=== PATIENT | male | born 1980 | race Native Hawaiian/Other Pacific Islander ===

== ENCOUNTER 2018-10-12 08:31 | Inpatient (IN) | payer OTHER ==
[2018-10-10 11:18] VITALS: BMI 31.6
[2018-10-12] MEDS ORDERED: ceFAZolin 1 gm in NS 2 GM/200 ML BAG IVPB ONE (14:05)
[2018-10-12] MEDS ORDERED: Midazolam 2 MG/2 ML VIAL ONE ×3 (14:09→16:02)
[2018-10-12] MEDS ORDERED: Propofol 10 mg/ml Inj (20 ML) ONE (14:11)
[2018-10-12] MEDS ORDERED: Oxycodone/Acetaminophen 5/325 mg Tab PO PRN ×2 (14:58)
[2018-10-12] MEDS ORDERED: Phenylephrine 10 mg/ml Inj ONE (15:01)
[2018-10-12] MEDS ORDERED: ePHEDrine 50 mg/ml Inj ONE (15:05)
[2018-10-12] MEDS ORDERED: Neostigmine 1:1000 (1 mg/ml) Inj ONE (15:21)
[2018-10-12] MEDS ORDERED: DiphenhydrAMINE 50 mg/ml Inj IVP PRN (16:18)
--- NOTE | 2018-10-12 16:21 | CP.PCM.CON ---
<CristoCesias M - Last Filed: 10/12/18 20:06> History of Present Illness - History of Present Illness History of Present Illness: ICU Consult Note for Dr. Uri Granda Consult for allergic reaction/anaphylaxis 38 years old male with PMHx with Asthma, & R achilles tendon rupture presented for SDS for a right Achilles Tendon repair. Following pre-op administration of Ancef and 10-minutes after incision, patient became hypotensive which was refractory to fluid and Neosynephrine, ephedrine, small doses of epi. Decision was made to stop the operation. Anesthesia performed a leak test which was noted no air passing past the ET tube while intubated. Patient was kept intubated and was transferred to the ICU. Unable to obtain ROS as patient is intubated. PMHx: Asthma Allergies: NKDA PSHx: Unobtainable due to patient's condition. Social Hx: Unobtainable due to patient's condition. Family Hx: Unobtainable due to patient's condition. PMD: Unobtainable Review of Systems - Review of Systems Systems not reviewed;Unavailable: Intubated Past Patient History - Past Medical History & Family History Past Medical History?: Yes - Past Social History Smoking Status: Never Smoked - CARDIAC Hx Cardiac Disorders: No - PULMONARY Hx Respiratory Disorders: No - NEUROLOGICAL Hx Neurological Disorder: No - HEENT Hx HEENT Problems: No - RENAL Hx Chronic Kidney Disease: No - ENDOCRINE/METABOLIC Hx Endocrine Disorders: No - HEMATOLOGICAL/ONCOLOGICAL Hx Blood Disorders: No - INTEGUMENTARY Hx Dermatological Problems: No - MUSCULOSKELETAL/RHEUMATOLOGICAL Hx Musculoskeletal Disorders: Yes Other/Comment: achilles tendon tear - GASTROINTESTINAL Hx Gastrointestinal Disorders: Yes Hx Gall Bladder Disease: Yes - GENITOURINARY/GYNECOLOGICAL Hx Genitourinary Disorders: No - PSYCHIATRIC Hx Psychophysiologic Disorder: No - SURGICAL HISTORY Hx Surgeries: Yes Hx Cholecystectomy: Yes - ANESTHESIA Hx Anesthesia: Yes Hx Anesthesia Reactions: No Hx Malignant Hyperthermia: No Has any member of the family had a problem w/ anesthesia?: No Meds Allergies/Adverse Reactions: Allergies Allergy/AdvReac Type Severity Reaction Status Date / Time cefazolin [From Ancef] Allergy ANAPHYLAXIS Verified 10/12/18 18:52 - Medications Medications: Current Medications Propofol (Diprivan) 1,000 mg in 100 mls @ 2.585 mls/hr IV .Q24H PRN; Protocol PRN Reason: TITRATE PER MD ORDER Methylprednisolone (Solu-Medrol) 40 mg IVP Q6H [facility] Oxycodone/Acetaminophen (Percocet 5/325 Mg Tab) 1 tab PO Q4H PRN PRN Reason: Pain, moderate (4-7) Stop: 10/15/18 14:59 Oxycodone/Acetaminophen (Percocet 5/325 Mg Tab) 2 tab PO Q4H PRN PRN Reason: Pain, severe (8-10) Stop: 10/15/18 14:59 Physical Exam - Constitutional Appears: Agitated - Head Exam Head Exam: NORMAL INSPECTION, NORMOCEPHALIC - Eye Exam Eye Exam: Normal appearance - ENT Exam ENT Exam: Mucous Membranes Moist Additional comments: Intubated, Lucie-orbital swelling, Lip edema - Respiratory Exam Respiratory Exam: Clear to Auscultation Bilateral Additional comments: intubated - Cardiovascular Exam Cardiovascular Exam: +S1, +S2. absent: Systolic Murmur - GI/Abdominal Exam GI & Abdominal Exam: Normal Bowel Sounds, Soft. absent: Distended - Extremities Exam Extremities exam: Negative for: calf tenderness Additional comments: R leg in cast - Neurological Exam Additional comments: Intubated - Skin Additional comments: Multiple tattoos around body Results - Vital Signs Recent Vital Signs: Last Vital Signs Temp 97.6 F 10/12/18 09:09 Pulse 72 10/12/18 09:09 Resp 18 10/12/18 09:09 BP 133/88 10/12/18 09:09 Pulse Ox 98 10/12/18 09:09 - Labs Result Diagrams: 10/12/18 18:26 10/12/18 18:26 Assessment & Plan - Assessment and Plan (Free Text) Assessment: 38 year old male with PMHx with Asthma who presented to the hospital for SDS for Achilles Tendon repair. Following administration of Ancef and incision in OR, patient became hypotensive secondary to anaphylactic reaction. Currently intubated, receiving methylprednisone & benadryl. On propofol & versed drip Plan: Neuro - Intubated and sedated - Propofol drip - no acute issues Cardiac - Tachycardic, Hypotensive 2/2 anaphylactic shock - NS bolus x7 - EKG to assess for QTc Pulm - Intubated on PRVC 15/450/40/5 - CXR 10/12: Minor bibasilar atelectasis - start Solumedrol 40mg q6h - Benadryl 25mg PRN - CXR in AM - f/u ABG GI - NPO, intubated - 1 episode of vomiting - will monitor Heme - H/H: 12s/39s - continue to monitor Renal - BUN/Cr 13s/0.9 - Condom catheter - monitor I & O - replenish electrolytes ID - Afebrile, WBC 14.9 - hx of foot ulcer/wound on R foot, unable to visualize due to cast - will start moxifloxacin empirically - f/u CBC PPx - DVT ppx: Heparin SC, scds on L LE - GI ppx: pepsid <Jessica Granda M - Last Filed: 10/13/18 09:13> Meds - Medications Medications: Current Medications Albuterol/Ipratropium (Duoneb 3 Mg/0.5 Mg (3 Ml) Ud) 3 ml INH RQ4 [facility] Last Admin: 10/13/18 03:52 Dose: 3 ml Heparin Sodium (Porcine) (Heparin) 5,000 units SC Q8 [facility] Last Admin: 10/13/18 06:03 Dose: 5,000 units Moxifloxacin HCl (Avelox Iv 400mg/250ml Ns) 400 mg in 250 mls @ 167 mls/hr IVPB Q24H [facility]ELA; Protocol Last Admin: 10/12/18 20:45 Dose: 167 mls/hr Calcium Gluconate 2,000 mg/ (Sodium Chloride) 270 mls @ 125 mls/hr IVPB ONCE ONE Stop: 10/13/18 11:09 Potassium Chloride (Potassium Chloride 20 Meq/100 Ml) 20 meq in 100 mls @ 50 mls/hr IVPB Q2H [facility] Stop: 10/13/18 13:14 Sodium Chloride (Sodium Chloride 0.9%) 1,000 mls @ 75 mls/hr IV .[id number] [facility] Methylprednisolone (Solu-Medrol) 40 mg IVP Q6H [facility] Last Admin: 10/13/18 04:26 Dose: 40 mg Pantoprazole Sodium (Protonix Ec Tab) 40 mg PO DAILY [facility] Results - Vital Signs Recent Vital Signs: Last Vital Signs Temp 97.4 F L 10/13/18 04:00 Pulse 108 H 10/13/18 08:01 Resp 21 10/13/18 08:01 BP 126/82 10/13/18 08:01 Pulse Ox 98 10/13/18 08:01 - Labs Result Diagrams: 10/13/18 07:28 10/13/18 06:25 Labs: Laboratory Results - last 24 hr 10/12/18 10/12/18 10/12/18 18:26 18:26 23:39 WBC 14.9 H RBC 5.46 Hgb 12.3 Hct 39.7 MCV 72.7 L MCH 21.9 L MCHC 30.1 L RDW 13.7 Plt Count 228 MPV 8.9 Neut % (Auto) 86.2 H Lymph % (Auto) 8.6 L [place] % (Auto) 4.4 Eos % (Auto) 0.3 Baso % (Auto) 0.5 Neut # (Auto) 12.9 H Lymph # (Auto) 1.3 [place] # (Auto) 0.7 Eos # (Auto) 0.0 Baso # (Auto) 0.1 Neutrophils % (Manual) 79 H Band Neutrophils % 8 H Lymphocytes % (Manual) 10 L Monocytes % (Manual) 3 Platelet Estimate Normal Hypochromasia (manual) Slight Poikilocytosis (manual Slight Anisocytosis (manual) Slight Puncture Site pCO2 pO2 HCO3 ABG pH ABG Total CO2 ABG O2 Saturation ABG Base Excess ABG Hemoglobin ABG Carboxyhemoglobin POC ABG HHb (Measured) ABG Methemoglobin Chicho Test A-a O2 Difference Respiratory Index Hgb O2 Saturation Vent Mode Mechanical Rate FiO2 Tidal Volume PEEP Sodium 139 Potassium 3.9 Chloride 108 H Carbon Dioxide 23 Anion Gap 11 BUN 13 Creatinine 0.9 Est GFR ( Amer) > 60 Est GFR (Non-Af Amer) > 60 POC Glucose (mg/dL) 154 H Random Glucose 102 Calcium 7.8 L Phosphorus 3.3 Magnesium 1.5 L Total Bilirubin 0.9 AST 45 ALT 80 H Alkaline Phosphatase 49 Total Creatine Kinase 118 CK-MB (Mass) 0.54 Troponin I 0.0190 Total Protein 5.1 L Albumin 3.0 L Globulin 2.1 L Albumin/Globulin Ratio 1.4 10/13/18 10/13/18 10/13/18 05:24 05:48 06:25 WBC RBC Hgb Hct MCV MCH MCHC RDW Plt Count MPV Neut % (Auto) Lymph % (Auto) [place] % (Auto) Eos % (Auto) Baso % (Auto) Neut # (Auto) Lymph # (Auto) [place] # (Auto) Eos # (Auto) Baso # (Auto) Neutrophils % (Manual) Band Neutrophils % Lymphocytes % (Manual) Monocytes % (Manual) Platelet Estimate Hypochromasia (manual) Poikilocytosis (manual Anisocytosis (manual) Puncture Site L brac pCO2 37 pO2 107 H HCO3 21.3 ABG pH 7.35 ABG Total CO2 21.5 L ABG O2 Saturation 99.4 H ABG Base Excess -4.7 L ABG Hemoglobin 11.6 L ABG Carboxyhemoglobin 2.3 H POC ABG HHb (Measured) 0.6 ABG Methemoglobin 0.7 Chicho Test Na A-a O2 Difference 132.0 Respiratory Index 1.2 Hgb O2 Saturation 96.4 Vent Mode Prvc Mechanical Rate 16 FiO2 40.0 Tidal Volume 450 PEEP 5 Sodium 139 Potassium 3.2 L Chloride 117 H Carbon Dioxide 15 L Anion Gap 10 BUN 9 Creatinine 0.6 L Est GFR ( Amer) > 60 Est GFR (Non-Af Amer) > 60 POC Glucose (mg/dL) 126 H Random Glucose 114 H Calcium 5.8 L* D Phosphorus 2.0 L Magnesium 1.7 Total Bilirubin 0.6 AST 33 ALT 65 Alkaline Phosphatase 35 L D Total Creatine Kinase CK-MB (Mass) Troponin I Total Protein 4.2 L Albumin 2.3 L D Globulin 1.9 L Albumin/Globulin Ratio 1.2 10/13/18 07:28 WBC 16.1 H RBC 5.19 Hgb 11.5 L Hct 37.8 MCV 72.9 L MCH 22.1 L MCHC 30.3 L RDW 13.7 Plt Count 225 MPV 8.8 Neut % (Auto) 93.6 H Lymph % (Auto) 4.9 L [place] % (Auto) 1.4 Eos % (Auto) 0.0 Baso % (Auto) 0.1 Neut # (Auto) 15.1 H Lymph # (Auto) 0.8 L [place] # (Auto) 0.2 Eos # (Auto) 0.0 Baso # (Auto) 0.0 Neutrophils % (Manual) Band Neutrophils % Lymphocytes % (Manual) Monocytes % (Manual) Platelet Estimate Hypochromasia (manual) Poikilocytosis (manual Anisocytosis (manual) Puncture Site pCO2 pO2 HCO3 ABG pH ABG Total CO2 ABG O2 Saturation ABG Base Excess ABG Hemoglobin ABG Carboxyhemoglobin POC ABG HHb (Measured) ABG Methemoglobin Chicho Test A-a O2 Difference Respiratory Index Hgb O2 Saturation Vent Mode Mechanical Rate FiO2 Tidal Volume PEEP Sodium Potassium Chloride Carbon Dioxide Anion Gap BUN Creatinine Est GFR ( Amer) Est GFR (Non-Af Amer) POC Glucose (mg/dL) Random Glucose Calcium Phosphorus Magnesium Total Bilirubin AST ALT Alkaline Phosphatase Total Creatine Kinase CK-MB (Mass) Troponin I Total Protein Albumin Globulin Albumin/Globulin Ratio Assessment & Plan - Assessment and Plan (Free Text) Plan: Above patient seen and examined at bedside. -Patient developed anaphylactic shock 2nd ancef -blanching skin lesions -will keep intubated -IV solumedrol, racemic epci, duonebs -IVF NS 7 liters -Patient's leak test neg - no leakage -cpap and extubate in AM -cc time 35 minutes - Date & Time Date: 10/12/18 Time: 21:00
--- NOTE | 2018-10-12 16:45 | RAD ---
Date of service: 10/12/2018 HISTORY: allergic reaction, intubated COMPARISON: No prior. FINDINGS: In situ ETT, tip of which lies approximately 4.1 cm above brandon. LUNGS: Low lung volumes with minor crowded bronchovascular markings and bibasilar atelectasis PLEURA: No significant pleural effusion identified, no pneumothorax apparent. CARDIOVASCULAR: No aortic atherosclerotic calcification present. Normal cardiac size. No pulmonary vascular congestion. OSSEOUS STRUCTURES: No significant abnormalities. VISUALIZED UPPER ABDOMEN: Normal. OTHER FINDINGS: None. IMPRESSION: In situ ETT in good position. Minor bibasilar atelectasis
--- NOTE | 2018-10-12 16:50 | CP.PCM.PN ---
Subjective - Date & Time of Evaluation Date of Evaluation: 10/12/18 Time of Evaluation: 16:43 - Subjective Subjective: patient intubated struggling and agitated trying to remove ET tube propofol increased during my evaluation non verbal Objective - Vital Signs/Intake and Output Vital Signs (last 24 hours): Temp Pulse Resp BP Pulse Ox 97.6 F 72 18 133/88 98 10/12/18 09:09 10/12/18 09:09 10/12/18 09:09 10/12/18 09:09 10/12/18 09:09 Intake and Output: 10/12/18 10/12/18 06:59 18:59 Intake Total 1700 Balance 1700 - Medications Medications: Current Medications Diphenhydramine HCl (Benadryl) 25 mg IVP PRN PRN PRN Reason: Allergy symptoms Propofol (Diprivan) 1,000 mg in 100 mls @ 2.585 mls/hr IV .Q24H PRN; Protocol PRN Reason: TITRATE PER MD ORDER Sodium Chloride (Sodium Chloride 0.9%) 1,000 mls @ 1,000 mls/hr IV .Q1H [facility] Stop: 10/12/18 23:29 Methylprednisolone (Solu-Medrol) 40 mg IVP Q6H [facility] Oxycodone/Acetaminophen (Percocet 5/325 Mg Tab) 2 tab PO Q4H PRN PRN Reason: Pain, severe (8-10) Stop: 10/15/18 14:59 - Constitutional Appears: Agitated - Head Exam Head Exam: ATRAUMATIC, NORMAL INSPECTION - Eye Exam Additional comments: eyes swollen - ENT Exam Additional comments: lips swollen - Respiratory Exam Respiratory Exam: absent: Clear to Ausculation Bilateral, Rales, Rhonchi, Wheezes Additional comments: coarse on vent - Cardiovascular Exam Cardiovascular Exam: Tachycardia, +S1, +S2 - GI/Abdominal Exam GI & Abdominal Exam: Soft, Normal Bowel Sounds. absent: Tenderness, Organomegaly - Extremities Exam Additional comments: right achiles in cast - Neurological Exam Neurological Exam: absent: Alert, Awake, Oriented x3 Additional comments: spont moving all ext. Assessment and Plan - Assessment and Plan (Free Text) Assessment: 38 yo male apparently no PMH per anesthesia- no family at bedside, patient non verbal - admitted to ICU from same day surgery. During OR procedure to repair right achilles tendon - procedure was started patient was turned over, he recieved anesthesia and ancef in preperation, first cut was made and in 10 min patient started dropping blood pressure and was red, also had swollen eyes, lips, swollen oropharnax, no passage of air past endo tracheal tube and thus surgery was stopped and patient transferred to icu. 1. Anaphalatic shock- with redness, swelling of face, oropharynx, lips, eyes, whole body red. started on steroids, benadryl 2. Continue monitoring in ICU - keep intubated on sedation for airway protection 3. Right achilles rupture- hold OR 4. DVT proph. continue treatment and monitoring in ICU Will help in treatment and plan when patient ready for med/surg floor.
[2018-10-12] MEDS: MethylPREDNISolone 40 mg Vial IVP SCH ×2 (16:54→22:09)
[2018-10-12] MEDS: Sodium Chloride 0.9% 1,000 ML IV SCH ×5 (16:56→23:50)
--- NOTE | 2018-10-12 17:03 | CP.PCM.CON ---
History of Present Illness - History of Present Illness History of Present Illness: During surgery patient was noted to have profound hypotension, with the first pressure noted at 1455. Neosynephrine, ephedrine, small doses of epi and vasopressin given and pressure responded very slightly over the course of [address] Kamar Gerber informed about the situation and decision was made to close the initial preliminary incision and abort the case. Blood pressure checked on other arm when patient was noted to have patches of red and hives on arms and back. After flipping the patient prone, patient was noted to have swollen face, periorbit, ears and lips. Leak test performed and I could not hear any air movement and tidal volumes were unchanged. The decision was made to transfer the patient to ICU for observation for allergic reaction/possible anaphylaxis. Sign out was performed to Dr. Granda with Dr. Kamar Gerber at bedside. Past Patient History - Past Medical History & Family History Past Medical History?: Yes - Past Social History Smoking Status: Never Smoked - CARDIAC Hx Cardiac Disorders: No - PULMONARY Hx Respiratory Disorders: No - NEUROLOGICAL Hx Neurological Disorder: No - HEENT Hx HEENT Problems: No - RENAL Hx Chronic Kidney Disease: No - ENDOCRINE/METABOLIC Hx Endocrine Disorders: No - HEMATOLOGICAL/ONCOLOGICAL Hx Blood Disorders: No - INTEGUMENTARY Hx Dermatological Problems: No - MUSCULOSKELETAL/RHEUMATOLOGICAL Hx Musculoskeletal Disorders: Yes Other/Comment: achilles tendon tear - GASTROINTESTINAL Hx Gastrointestinal Disorders: Yes Hx Gall Bladder Disease: Yes - GENITOURINARY/GYNECOLOGICAL Hx Genitourinary Disorders: No - PSYCHIATRIC Hx Psychophysiologic Disorder: No - SURGICAL HISTORY Hx Surgeries: Yes Hx Cholecystectomy: Yes - ANESTHESIA Hx Anesthesia: Yes Hx Anesthesia Reactions: No Hx Malignant Hyperthermia: No Has any member of the family had a problem w/ anesthesia?: No Meds Allergies/Adverse Reactions: Allergies Allergy/AdvReac Type Severity Reaction Status Date / Time No Known Allergies Allergy Verified 10/10/18 11:18 - Medications Medications: Current Medications Diphenhydramine HCl (Benadryl) 25 mg IVP PRN PRN PRN Reason: Allergy symptoms Propofol (Diprivan) 1,000 mg in 100 mls @ 2.585 mls/hr IV .Q24H PRN; Protocol PRN Reason: TITRATE PER MD ORDER Sodium Chloride (Sodium Chloride 0.9%) 1,000 mls @ 1,000 mls/hr IV .Q1H [facility] Stop: 10/12/18 23:29 Methylprednisolone (Solu-Medrol) 40 mg IVP Q6H [facility] Oxycodone/Acetaminophen (Percocet 5/325 Mg Tab) 2 tab PO Q4H PRN PRN Reason: Pain, severe (8-10) Stop: 10/15/18 14:59 Results - Vital Signs Recent Vital Signs: Last Vital Signs Temp 97.6 F 10/12/18 09:09 Pulse 72 10/12/18 09:09 Resp 18 10/12/18 09:09 BP 133/88 10/12/18 09:09 Pulse Ox 98 10/12/18 09:09
[2018-10-12] MEDS: Propofol 10 mg/ml 1,000 MG/100 ML VIAL IV PRN ×3 (17:40→23:50)
[2018-10-12] MEDS ORDERED: Racepinephrine 2.25% Inhal Soln 0.5 ML UD INH ONE (18:18)
[2018-10-12] MEDS ORDERED: Albuterol 0.083% Inhal Sol (2.5 mg/3 mL) UD ONE (18:38)
[2018-10-12 18:50] LABS: ALB/GLOB RATIO 1.4 (1.0-2.1); ALT/SGPT 80 U/L (21-72); AST/SGOT 45 U/L (17-59); BLOOD UREA NITROGEN 13 mg/dL (9-20); CALCIUM 7.8 mg/dl (8.6-10.4); GFR NON-AFRICAN AMERICAN > 60
[2018-10-12 19:01] LABS: CK-MB 0.54 ng/mL (0.0-3.38)
[2018-10-12 19:41] LABS: BASO # 0.1 K/uL (0.0-0.2); BASO % 0.5 % (0.0-2.0); EOS % 0.3 % (0.0-4.0); LYMPH # 1.3 K/uL (1.0-4.3); LYMPH % 8.6 % (20.0-40.0); MEAN CELL VOLUME 72.7 fL (80.0-94.0); MEAN CORPUSCULAR HEMOGLOBIN 21.9 pg (27.0-31.0); MEAN CORPUSCULAR HGB CONC 30.1 g/dL (33.0-37.0); MEAN PLATELET VOLUME 8.9 fL (7.2-11.7); MONO # 0.7 K/uL (0.0-0.8); MONO % 4.4 % (0.0-10.0); NEUT # 12.9 K/uL (1.8-7.0); NEUT % 86.2 % (50.0-75.0); NRBC % 0.1 % (0.0-2.0); RBC 5.46 Mil/uL (4.40-5.90); RED CELL DISTRIBUTION WIDTH 13.7 % (11.5-14.5); WHITE BLOOD COUNT 14.9 K/uL (4.8-10.8)
[2018-10-12 19:44] LABS: HEMOGLOBIN 12.3 g/dL (12.0-18.0)
[2018-10-12 19:45] LABS: PLATELET COUNT 228 K/uL (130-400)
[2018-10-12] MEDS ORDERED: Midazolam 50 mg/10 ml 100 MG in Dextrose 5% In Water 80 ML IV SCH (19:45)
[2018-10-12] MEDS ORDERED: Albuterol-Ipratrop 3 mg / 0.5 (3 ml) UD INH SCH (20:00)
[2018-10-12] MEDS: Magnesium Sulfate 1 gm in D5W 1 GM/100 ML BAG IVPB SCH ×2 (20:14→20:47)
[2018-10-12] MEDS ORDERED: Moxifloxacin IV 400mg/250ml NS 400 MG/250 ML BAG IVPB SCH (20:15)
[2018-10-12 21:11] LABS: BANDS 8 % (0-2); LYMPHOCYTE 10 % (20-40); MONOCYTE 3 % (0-10); NEUTROPHIL 79 % (50-75); TOTAL CELLS COUNTED 100
[2018-10-12 21:12] LABS: ANISOCYTOSIS SLIGHT; HYPOCHROMIC SLIGHT; PLATELET ESTIMATE NORMAL (NORMAL); POIKILOCYTOSIS SLIGHT
--- NOTE | 2018-10-12 21:32 | PCM.SURG1 ---
Surgeon's Initial Post Op Note - Surgeon's Notes Surgeon: Marlin Wren MD Bond Broker: Brandon De Santiago PA-C Type of Anesthesia: General Endo Pre-Operative Diagnosis: Right ankle [place]'s tear Operative Findings: Right Ankle Michael's tear Post-Operative Diagnosis: Right [place]'s Tendon Tear Operation Performed: Right Ankle/Foot: #1 Aborted Open Imchael's Primary Repai r. #2 Closed Treatment of Michael's Tear. #3 Placement in Short Leg Equinus Cast Specimen/Specimens Removed: specimen= none. implants= none. tourniquet time= 4 min at 300mmHg. Complications= Hypotensive Episode at the Beginning of the Surgery immediately after incision, Surgery Aborted (only skin incision made), placed in short leg cast in Equinus position as non-operative/ closed tx for the Michael's tear Estimated Blood Loss: EBL {In ML}: 0 Blood Products Given: N/A Drains Used: No Drains Post-Op Condition: Other Date of Surgery/Procedure: 10/12/18 Time of Surgery/Procedure: 15:00
--- NOTE | 2018-10-12 22:36 | CP.PCM.PN ---
Subjective - Date & Time of Evaluation Date of Evaluation: 10/12/18 Time of Evaluation: 17:00 - Subjective Subjective: Patient is a 38-year-old male with no significant past medical history admitted through same-day surgery today for planned outpatient right ankle/foot primary Achilles tendon repair. He was playing recreational basketball on 09/12/18 when he felt a pop localized to his right foot/ankle Achilles tendon with immediate weakness and pain. He was unable to return to playing basketball. Clinically, as well as through MRI, Achilles tear was confirmed. Treatment options were presented to the patient including serial casting versus primary repair. He took his time doing his own research and after multiple discussions with myself in the office and on the phone, he finally committed to primary Achilles repair scheduled for today, 10/12/18. He did not want to pursue non- operative tx/ serial casting. Review of medical records from his primary care physician (preoperative medical clearance/evaluation), my office notes, and the patients own documentation of past medical history including question about allergies shows that there is no known history of medical problems or allergies. There is a history of previous surgery, gallbladder removal in 2013 in [place] without any complications. He was admitted through same day surgery today as planned for outpatient primary Achilles repair. He was brought to the operating room and placed successfully under general anesthesia without any obvious immediate complications. He was then placed into the prone position with appropriate padding and positioning confirmed with the help of nursing and anesthesia staff as well. IV perioperative antibiotics in the form of Ancef was administered at 2:43 PM. We continued to prep and drape. Final time out was done and pt positioning evaluated with help of nursing and anesthesia staff. There was no communication from Anesthesia staff or obvious indication at the time of "Final Time Out" that there was any complication or developing hypotensive episode. Right Lower Extremity was exanguinated and tourniquet was inflated. After skin incision was made, anesthesia staff communicated to me that the pt is experiencing a severe hypotensive episode that was not responding to Painful Stimulus. Surgery was halted. We were not satisfied with the response from pressors and he continued to be hypotensive albeit improved. After discussing the situation with anesthesia staff, decision was made to abort surgery, the skin incision was reapproximated with nitza and sterile dressings were placed. Right ankle/foot was then placed in a short leg cast in equines position as closed treatment for the Achilles tear. He was brought to the supine position and it was obvious that there was facial swelling as well as redness from presumed allergic reaction. Anesthesia staff performed a leak test during which there was no escape of air around the endotracheal tube. It was ascertained that he also had tracheal swelling/edema from the allergic reaction. Decision was made to keep him intubated and he was transferred to ICU room #4. The short leg cast was bivalved as a precaution to accommodate any fluid shifts during his ICU stay and while remaining intubated. I personally signed out to the hospitalist and ICU attending with anesthesiologist Francisco J Jade MD. I personally spoke with patients over the phone on numerous occasions as she was presently in [facility] until 6 PM. She was aware of the situation and was in agreement with our treatment plan. Plan to meet with patients family and hospitalist team at ICU bedside with patient tomorrow a.m. Objective - Vital Signs/Intake and Output Vital Signs (last 24 hours): Temp Pulse Resp BP Pulse Ox 97.2 F L 93 H 17 104/60 98 10/12/18 14:59 10/12/18 19:51 10/12/18 19:51 10/12/18 19:51 10/12/18 19:51 Intake and Output: 10/12/18 10/13/18 18:59 06:59 Intake Total 3846.2 1065.6 Balance 3846.2 1065.6 - Medications Medications: Current Medications Albuterol/Ipratropium (Duoneb 3 Mg/0.5 Mg (3 Ml) Ud) 3 ml INH RQ4 [facility]A Diphenhydramine HCl (Benadryl) 25 mg IVP PRN PRN PRN Reason: Allergy symptoms Last Admin: 10/12/18 16:54 Dose: 25 mg Heparin Sodium (Porcine) (Heparin) 5,000 units SC Q8 CRISTELA Propofol (Diprivan) 1,000 mg in 100 mls @ 2.585 mls/hr IV .Q24H PRN; Protocol PRN Reason: TITRATE PER MD ORDER Last Titration: 10/12/18 20:50 Dose: 40 mcg/kg/min, 20.684 mls/hr Midazolam HCl 100 mg/ Dextrose 100 mls @ 1.72 mls/hr IV .Q24H CRISTELA; Protocol Last Admin: 10/12/18 20:02 Dose: 0.02 mg/kg/hr, 1.72 mls/hr Sodium Chloride (Sodium Chloride 0.9%) 1,000 mls @ 250 mls/hr IV .Q4H CRISTELA Last Admin: 10/12/18 19:30 Dose: 250 mls/hr Moxifloxacin HCl (Avelox Iv 400mg/250ml Ns) 400 mg in 250 mls @ 167 mls/hr IVPB Q24H CRISTELA; Protocol Last Admin: 10/12/18 20:45 Dose: 167 mls/hr Methylprednisolone (Solu-Medrol) 40 mg IVP Q6H CRISTELA Last Admin: 10/12/18 16:54 Dose: 40 mg Oxycodone/Acetaminophen (Percocet 5/325 Mg Tab) 2 tab PO Q4H PRN PRN Reason: Pain, severe (8-10) Stop: 10/15/18 14:59 Pantoprazole Sodium (Protonix Inj) 40 mg IVP DAILY CRISTELA - Labs Labs: 10/12/18 18:26 10/12/18 18:26 Assessment and Plan - Assessment and Plan (Free Text) Assessment: 38 yo Male, w/ R foot/ankle pain and weakness s/p non-contact injury during basketball game on 09/12/18. Dx= R foot/ankle Michael's tendon tear Plan for surgery = primary Achilles repair 10/12/18 as outpt surgery at [facility]. Surgery aborted due to hypotensive episode, most likely allergic reaction/ anaphylaxis. skin wound closed, placed in well padded short leg cast in Equines position- closed treatment of Bradford's tendon tear. Failed leak test with anesthesia in OR prior to planned extubation. Transferred to ICU, remained intubated overnight. Extubated next day AM, 10/13/18. PLAN: R foot/ankle: -placed in bivalved short leg cast in equinus position as closed / non-op tx of Achilles tear -cast care -elevation -NWB RLE -DVT proph Hypotensive episode/ allergic reaction: -still intubated in ICU -respiratory tx per ICU staff -steroid, benadryl tx to decrease swelling Will Follow Plan to meet with family, hospitalist team and ICU team 10/13/18 AM bedside with pt. I personally had many discussions over the phone with the pt's during the course of the day after arriving with pt in ICU. She is in agreement with the tx plan moving foward and all questions were answered. Dr. Pate was present for some of the interactions and helped explain the anesthesia point of view of the events to the pts over the phone as well. Please contact me directly with any updates, concerns, questions at [phone]. Marlin Wren MD Orthopedic Surgery
[2018-10-13] MEDS: Albuterol-Ipratrop 3 mg / 0.5 (3 ml) UD INH SCH ×6 (00:46→19:21)
[2018-10-13] MEDS: Sodium Chloride 0.9% 1,000 ML IV SCH (04:20)
[2018-10-13] MEDS: MethylPREDNISolone 40 mg Vial IVP SCH ×4 (04:26→21:41)
[2018-10-13 05:52] LABS: ARTERIAL BLOOD GAS HCO3 21.3 mmol/L (21-28); ARTERIAL BLOOD GAS HEMOGLOBIN 11.6 g/dL (11.7-17.4); ARTERIAL BLOOD GAS O2 SAT 99.4 % (95-98); ARTERIAL BLOOD GAS PCO2 37 mm/Hg (35-45); ARTERIAL BLOOD GAS PH 7.35 (7.35-7.45); ARTERIAL BLOOD GAS PO2 107 mm/Hg (80-100); ARTERIAL BLOOD GAS TCO2 21.5 mmol/L (22-28)
[2018-10-13] MEDS: Propofol 10 mg/ml 1,000 MG/100 ML VIAL IV PRN (06:09)
[2018-10-13 06:50] LABS: ALB/GLOB RATIO 1.2 (1.0-2.1); ALBUMIN 2.3 g/dL (3.5-5.0); ALT/SGPT 65 U/L (21-72); AST/SGOT 33 U/L (17-59); BLOOD UREA NITROGEN 9 mg/dL (9-20); CALCIUM 5.8 mg/dl (8.6-10.4); GFR NON-AFRICAN AMERICAN > 60
[2018-10-13 08:29] LABS: BASO % 0.1 % (0.0-2.0); LYMPH # 0.8 K/uL (1.0-4.3); LYMPH % 4.9 % (20.0-40.0); MEAN CELL VOLUME 72.9 fL (80.0-94.0); MEAN CORPUSCULAR HEMOGLOBIN 22.1 pg (27.0-31.0); MEAN CORPUSCULAR HGB CONC 30.3 g/dL (33.0-37.0); MEAN PLATELET VOLUME 8.8 fL (7.2-11.7); MONO # 0.2 K/uL (0.0-0.8); MONO % 1.4 % (0.0-10.0); NEUT # 15.1 K/uL (1.8-7.0); NEUT % 93.6 % (50.0-75.0); PLATELET COUNT 225 K/uL (130-400); RBC 5.19 Mil/uL (4.40-5.90); RED CELL DISTRIBUTION WIDTH 13.7 % (11.5-14.5); WHITE BLOOD COUNT 16.1 K/uL (4.8-10.8)
[2018-10-13 08:33] LABS: HEMOGLOBIN 11.5 g/dL (12.0-18.0)
[2018-10-13] MEDS ORDERED: Sodium Chloride 0.9% 1,000 ML IV SCH (08:45)
[2018-10-13] MEDS ORDERED: Sodium Chloride 0.9% 500 ML IV ONE (09:07)
[2018-10-13] MEDS ORDERED: Magnesium Sulfate 1 gm in D5W 1 GM/100 ML BAG IVPB ONE (09:07)
--- NOTE | 2018-10-13 09:09 | CP.CCUPN ---
<Matthias Lemons - Last Filed: 10/13/18 10:06> CCU Subjective - Physician Review Subjective (Free Text): Critical care progress note for Dr. Uri Granda. Patient seen and examined at bedside. No overnight events. Sedation turned off and patient extubated off this AM with no issues. Patient offers no complaints. Denies chest pain, SOB, nausea, vomiting, diarrhea, constipation. CCU Objective - Vital Signs / Intake & Output Vital Signs (Last 4 hours): Vital Signs Pulse Resp BP Pulse Ox 10/13/18 08:01 108 H 21 126/82 98 10/13/18 08:00 109 H 20 99 10/13/18 07:50 108 H 21 97 10/13/18 07:40 113 H 18 99 10/13/18 07:30 107 H 18 99 10/13/18 07:20 105 H 28 H 98 10/13/18 07:15 106 H 26 H 109/36 L 99 10/13/18 07:10 108 H 15 99 10/13/18 07:00 105 H 19 99 10/13/18 06:50 101 H 20 98 10/13/18 06:40 100 H 20 98 10/13/18 06:30 103 H 21 98 10/13/18 06:20 101 H 21 98 10/13/18 06:14 107 H 20 155/73 H 98 10/13/18 06:10 106 H 29 H 98 10/13/18 06:00 100 H 23 99 10/13/18 05:50 100 H 20 99 10/13/18 05:40 106 H 29 H 98 10/13/18 05:30 109 H 16 99 10/13/18 05:20 100 H 21 98 10/13/18 05:14 106 H 24 142/92 H 97 10/13/18 05:10 106 H 25 H 98 Intake and Output (Last 8hrs): Intake & Output 10/12/18 10/13/18 10/13/18 22:59 06:59 14:59 Intake Total 4928.7 2341.4 Output Total 900 Balance 4928.7 1441.4 Weight 190 lb Intake: IV 640 175 Intake, IV Amount 4288.7 2166.4 Right Hand 3750 2000 Right hand 2 133.6 146.7 left ac 400 rt hand pb 5.1 19.7 Output: Urine 900 Condom 900 - Physical Exam Head: Positive for: Atraumatic, Normocephalic Pupils: Positive for: PERRL Extroacular Muscles: Positive for: EOMI Mouth: Positive for: Moist Mucous Membranes Neck: Positive for: Normal Range of Motion Respiratory/Chest: Positive for: Clear to Auscultation, Good Air Exchange. Negative for: Respiratory Distress, Accessory Muscle Use Cardiovascular: Positive for: Regular Rate and Rhythm, Normal S1, S2. Negative for: Murmurs Abdomen: Positive for: Normal Bowel Sounds. Negative for: Tenderness, Distention Upper Extremity: Positive for: Normal Inspection. Negative for: Cyanosis, Edema Lower Extremity: Positive for: Other (R foot in cast s/p tendon rupture ). Negative for: Edema Skin: Positive for: Warm, Dry, Rashes, Other (multiple tattoos LE & UE) - Medications Active Medications: Active Medications Generic Name Dose Route Start Last Admin Trade Name Freq PRN Reason Stop Dose Admin Albuterol/Ipratropium 3 ml 10/12/18 18:33 10/13/18 07:30 Duoneb 3 Mg/0.5 Mg (3 Ml) Ud INH 3 ml RQ4 CRISTELA Administration Heparin Sodium (Porcine) 5,000 units 10/12/18 22:00 10/13/18 06:03 Heparin SC 5,000 units Q8 CRISTELA Administration Moxifloxacin HCl 400 mg in 250 mls @ 167 mls/hr 10/12/18 20:15 10/12/18 20:45 Avelox Iv 400mg/250ml Ns IVPB 167 mls/hr Q24H CRISTELA Administration Protocol Calcium Gluconate 2,000 mg/ 270 mls @ 125 mls/hr 10/13/18 09:00 Sodium Chloride IVPB 10/13/18 11:09 ONCE ONE Potassium Chloride 20 meq in 100 mls @ 50 mls/hr 10/13/18 07:15 Potassium Chloride 20 Meq/100 Ml IVPB 10/13/18 13:14 Q2H CRISTELA Sodium Chloride 1,000 mls @ 75 mls/hr 10/13/18 08:45 Sodium Chloride 0.9% IV .[id number] CRISTELA Magnesium Sulfate/Dextrose 1 gm in 100 mls @ 200 mls/hr 10/13/18 09:07 Magnesium Sulfate 1 Gm/100 Ml D5w IVPB 10/13/18 09:36 ONCE ONE Sodium Chloride 500 mls @ 1,000 mls/hr 10/13/18 09:07 Sodium Chloride 0.9% IV 10/13/18 09:36 .Q30M ONE Methylprednisolone 40 mg 10/12/18 16:30 10/13/18 04:26 Solu-Medrol IVP 40 mg Q6H CRISTELA Administration Pantoprazole Sodium 40 mg 10/13/18 10:00 Protonix Ec Tab PO DAILY CRISTELA - Patient Studies Lab Studies: Lab Studies 10/13/18 10/13/18 10/13/18 Range/Units 07:28 06:25 05:48 WBC 16.1 H (4.8-10.8) K/uL RBC 5.19 (4.40-5.90) Mil/uL Hgb 11.5 L (12.0-18.0) g/dL Hct 37.8 (35.0-51.0) % MCV 72.9 L (80.0-94.0) fL MCH 22.1 L (27.0-31.0) pg MCHC 30.3 L (33.0-37.0) g/dL RDW 13.7 (11.5-14.5) % Plt Count 225 (130-400) K/uL MPV 8.8 (7.2-11.7) fL Neut % (Auto) 93.6 H (50.0-75.0) % Lymph % (Auto) 4.9 L (20.0-40.0) % [place] % (Auto) 1.4 (0.0-10.0) % Eos % (Auto) 0.0 (0.0-4.0) % Baso % (Auto) 0.1 (0.0-2.0) % Neut # (Auto) 15.1 H (1.8-7.0) K/uL Lymph # (Auto) 0.8 L (1.0-4.3) K/uL [place] # (Auto) 0.2 (0.0-0.8) K/uL Eos # (Auto) 0.0 (0.0-0.7) K/uL Baso # (Auto) 0.0 (0.0-0.2) K/uL Neutrophils % (Manual) (50-75) % Band Neutrophils % (0-2) % Lymphocytes % (Manual) (20-40) % Monocytes % (Manual) (0-10) % Platelet Estimate (NORMAL) Hypochromasia (manual) Poikilocytosis (manual Anisocytosis (manual) Puncture Site pCO2 (35-45) mm/Hg pO2 (80-100) mm/Hg HCO3 (21-28) mmol/L ABG pH (7.35-7.45) ABG Total CO2 (22-28) mmol/L ABG O2 Saturation (95-98) % ABG Base Excess (-2.0-3.0) mmol/L ABG Hemoglobin (11.7-17.4) g/dL ABG Carboxyhemoglobin (0.5-1.5) % POC ABG HHb (Measured) (0.0-5.0) % ABG Methemoglobin (0.0-3.0) % [place]o Test A-a O2 Difference mm/Hg Respiratory Index Hgb O2 Saturation (95.0-98.0) % Vent Mode Mechanical Rate FiO2 % Tidal Volume PEEP Sodium 139 (132-148) mmol/L Potassium 3.2 L (3.6-5.2) mmol/L Chloride 117 H (98-107) mmol/L Carbon Dioxide 15 L (22-30) mmol/L Anion Gap 10 (10-20) BUN 9 (9-20) mg/dL Creatinine 0.6 L (0.8-1.5) mg/dL Est GFR ( Amer) > 60 Est GFR (Non-Af Amer) > 60 POC Glucose (mg/dL) 126 H (65-110) mg/dL Random Glucose 114 H (75-110) mg/dL Calcium 5.8 L* D (8.6-10.4) mg/dl Phosphorus 2.0 L (2.5-4.5) mg/dL Magnesium 1.7 (1.6-2.3) mg/dL Total Bilirubin 0.6 (0.2-1.3) mg/dL AST 33 (17-59) U/L ALT 65 (21-72) U/L Alkaline Phosphatase 35 L D (38-126) U/L Total Creatine Kinase (55-170) U/L CK-MB (Mass) (0.0-3.38) ng/mL Troponin I (0.00-0.120) ng/mL Total Protein 4.2 L (6.3-8.3) g/dL Albumin 2.3 L D (3.5-5.0) g/dL Globulin 1.9 L (2.2-3.9) gm/dL Albumin/Globulin Ratio 1.2 (1.0-2.1) 10/13/18 10/12/18 10/12/18 Range/Units 05:24 23:39 18:26 WBC (4.8-10.8) K/uL RBC (4.40-5.90) Mil/uL Hgb (12.0-18.0) g/dL Hct (35.0-51.0) % MCV (80.0-94.0) fL MCH (27.0-31.0) pg MCHC (33.0-37.0) g/dL RDW (11.5-14.5) % Plt Count (130-400) K/uL MPV (7.2-11.7) fL Neut % (Auto) (50.0-75.0) % Lymph % (Auto) (20.0-40.0) % [place] % (Auto) (0.0-10.0) % Eos % (Auto) (0.0-4.0) % Baso % (Auto) (0.0-2.0) % Neut # (Auto) (1.8-7.0) K/uL Lymph # (Auto) (1.0-4.3) K/uL [place] # (Auto) (0.0-0.8) K/uL Eos # (Auto) (0.0-0.7) K/uL Baso # (Auto) (0.0-0.2) K/uL Neutrophils % (Manual) (50-75) % Band Neutrophils % (0-2) % Lymphocytes % (Manual) (20-40) % Monocytes % (Manual) (0-10) % Platelet Estimate (NORMAL) Hypochromasia (manual) Poikilocytosis (manual Anisocytosis (manual) Puncture Site L brac pCO2 37 (35-45) mm/Hg pO2 107 H (80-100) mm/Hg HCO3 21.3 (21-28) mmol/L ABG pH 7.35 (7.35-7.45) ABG Total CO2 21.5 L (22-28) mmol/L ABG O2 Saturation 99.4 H (95-98) % ABG Base Excess -4.7 L (-2.0-3.0) mmol/L ABG Hemoglobin 11.6 L (11.7-17.4) g/dL ABG Carboxyhemoglobin 2.3 H (0.5-1.5) % POC ABG HHb (Measured) 0.6 (0.0-5.0) % ABG Methemoglobin 0.7 (0.0-3.0) % [place]o Test Na A-a O2 Difference 132.0 mm/Hg Respiratory Index 1.2 Hgb O2 Saturation 96.4 (95.0-98.0) % Vent Mode Prvc Mechanical Rate 16 FiO2 40.0 % Tidal Volume 450 PEEP 5 Sodium 139 (132-148) mmol/L Potassium 3.9 (3.6-5.2) mmol/L Chloride 108 H (98-107) mmol/L Carbon Dioxide 23 (22-30) mmol/L Anion Gap 11 (10-20) BUN 13 (9-20) mg/dL Creatinine 0.9 (0.8-1.5) mg/dL Est GFR ( Amer) > 60 Est GFR (Non-Af Amer) > 60 POC Glucose (mg/dL) 154 H (65-110) mg/dL Random Glucose 102 (75-110) mg/dL Calcium 7.8 L (8.6-10.4) mg/dl Phosphorus 3.3 (2.5-4.5) mg/dL Magnesium 1.5 L (1.6-2.3) mg/dL Total Bilirubin 0.9 (0.2-1.3) mg/dL AST 45 (17-59) U/L ALT 80 H (21-72) U/L Alkaline Phosphatase 49 (38-126) U/L Total Creatine Kinase 118 (55-170) U/L CK-MB (Mass) 0.54 (0.0-3.38) ng/mL Troponin I 0.0190 (0.00-0.120) ng/mL Total Protein 5.1 L (6.3-8.3) g/dL Albumin 3.0 L (3.5-5.0) g/dL Globulin 2.1 L (2.2-3.9) gm/dL Albumin/Globulin Ratio 1.4 (1.0-2.1) 10/12/18 Range/Units 18:26 WBC 14.9 H (4.8-10.8) K/uL RBC 5.46 (4.40-5.90) Mil/uL Hgb 12.3 (12.0-18.0) g/dL Hct 39.7 (35.0-51.0) % MCV 72.7 L (80.0-94.0) fL MCH 21.9 L (27.0-31.0) pg MCHC 30.1 L (33.0-37.0) g/dL RDW 13.7 (11.5-14.5) % Plt Count 228 (130-400) K/uL MPV 8.9 (7.2-11.7) fL Neut % (Auto) 86.2 H (50.0-75.0) % Lymph % (Auto) 8.6 L (20.0-40.0) % [place] % (Auto) 4.4 (0.0-10.0) % Eos % (Auto) 0.3 (0.0-4.0) % Baso % (Auto) 0.5 (0.0-2.0) % Neut # (Auto) 12.9 H (1.8-7.0) K/uL Lymph # (Auto) 1.3 (1.0-4.3) K/uL [place] # (Auto) 0.7 (0.0-0.8) K/uL Eos # (Auto) 0.0 (0.0-0.7) K/uL Baso # (Auto) 0.1 (0.0-0.2) K/uL Neutrophils % (Manual) 79 H (50-75) % Band Neutrophils % 8 H (0-2) % Lymphocytes % (Manual) 10 L (20-40) % Monocytes % (Manual) 3 (0-10) % Platelet Estimate Normal (NORMAL) Hypochromasia (manual) Slight Poikilocytosis (manual Slight Anisocytosis (manual) Slight Puncture Site pCO2 (35-45) mm/Hg pO2 (80-100) mm/Hg HCO3 (21-28) mmol/L ABG pH (7.35-7.45) ABG Total CO2 (22-28) mmol/L ABG O2 Saturation (95-98) % ABG Base Excess (-2.0-3.0) mmol/L ABG Hemoglobin (11.7-17.4) g/dL ABG Carboxyhemoglobin (0.5-1.5) % POC ABG HHb (Measured) (0.0-5.0) % ABG Methemoglobin (0.0-3.0) % [place] Test A-a O2 Difference mm/Hg Respiratory Index Hgb O2 Saturation (95.0-98.0) % Vent Mode Mechanical Rate FiO2 % Tidal Volume PEEP Sodium (132-148) mmol/L Potassium (3.6-5.2) mmol/L Chloride (98-107) mmol/L Carbon Dioxide (22-30) mmol/L Anion Gap (10-20) BUN (9-20) mg/dL Creatinine (0.8-1.5) mg/dL Est GFR ( Amer) Est GFR (Non-Af Amer) POC Glucose (mg/dL) (65-110) mg/dL Random Glucose (75-110) mg/dL Calcium (8.6-10.4) mg/dl Phosphorus (2.5-4.5) mg/dL Magnesium (1.6-2.3) mg/dL Total Bilirubin (0.2-1.3) mg/dL AST (17-59) U/L ALT (21-72) U/L Alkaline Phosphatase (38-126) U/L Total Creatine Kinase (55-170) U/L CK-MB (Mass) (0.0-3.38) ng/mL Troponin I (0.00-0.120) ng/mL Total Protein (6.3-8.3) g/dL Albumin (3.5-5.0) g/dL Globulin (2.2-3.9) gm/dL Albumin/Globulin Ratio (1.0-2.1) Laboratory Results - last 24 hr 10/12/18 10/12/18 10/12/18 18:26 18:26 23:39 WBC 14.9 H RBC 5.46 Hgb 12.3 Hct 39.7 MCV 72.7 L MCH 21.9 L MCHC 30.1 L RDW 13.7 Plt Count 228 MPV 8.9 Neut % (Auto) 86.2 H Lymph % (Auto) 8.6 L [place] % (Auto) 4.4 Eos % (Auto) 0.3 Baso % (Auto) 0.5 Neut # (Auto) 12.9 H Lymph # (Auto) 1.3 [place] # (Auto) 0.7 Eos # (Auto) 0.0 Baso # (Auto) 0.1 Neutrophils % (Manual) 79 H Band Neutrophils % 8 H Lymphocytes % (Manual) 10 L Monocytes % (Manual) 3 Platelet Estimate Normal Hypochromasia (manual) Slight Poikilocytosis (manual Slight Anisocytosis (manual) Slight Puncture Site pCO2 pO2 HCO3 ABG pH ABG Total CO2 ABG O2 Saturation ABG Base Excess ABG Hemoglobin ABG Carboxyhemoglobin POC ABG HHb (Measured) ABG Methemoglobin [place]o Test A-a O2 Difference Respiratory Index Hgb O2 Saturation Vent Mode Mechanical Rate FiO2 Tidal Volume PEEP Sodium 139 Potassium 3.9 Chloride 108 H Carbon Dioxide 23 Anion Gap 11 BUN 13 Creatinine 0.9 Est GFR ( Amer) > 60 Est GFR (Non-Af Amer) > 60 POC Glucose (mg/dL) 154 H Random Glucose 102 Calcium 7.8 L Phosphorus 3.3 Magnesium 1.5 L Total Bilirubin 0.9 AST 45 ALT 80 H Alkaline Phosphatase 49 Total Creatine Kinase 118 CK-MB (Mass) 0.54 Troponin I 0.0190 Total Protein 5.1 L Albumin 3.0 L Globulin 2.1 L Albumin/Globulin Ratio 1.4 10/13/18 10/13/18 10/13/18 05:24 05:48 06:25 WBC RBC Hgb Hct MCV MCH MCHC RDW Plt Count MPV Neut % (Auto) Lymph % (Auto) [place] % (Auto) Eos % (Auto) Baso % (Auto) Neut # (Auto) Lymph # (Auto) [place] # (Auto) Eos # (Auto) Baso # (Auto) Neutrophils % (Manual) Band Neutrophils % Lymphocytes % (Manual) Monocytes % (Manual) Platelet Estimate Hypochromasia (manual) Poikilocytosis (manual Anisocytosis (manual) Puncture Site L brac pCO2 37 pO2 107 H HCO3 21.3 ABG pH 7.35 ABG Total CO2 21.5 L ABG O2 Saturation 99.4 H ABG Base Excess -4.7 L ABG Hemoglobin 11.6 L ABG Carboxyhemoglobin 2.3 H POC ABG HHb (Measured) 0.6 ABG Methemoglobin 0.7 [place] Test Na A-a O2 Difference 132.0 Respiratory Index 1.2 Hgb O2 Saturation 96.4 Vent Mode Prvc Mechanical Rate 16 FiO2 40.0 Tidal Volume 450 PEEP 5 Sodium 139 Potassium 3.2 L Chloride 117 H Carbon Dioxide 15 L Anion Gap 10 BUN 9 Creatinine 0.6 L Est GFR ( Amer) > 60 Est GFR (Non-Af Amer) > 60 POC Glucose (mg/dL) 126 H Random Glucose 114 H Calcium 5.8 L* D Phosphorus 2.0 L Magnesium 1.7 Total Bilirubin 0.6 AST 33 ALT 65 Alkaline Phosphatase 35 L D Total Creatine Kinase CK-MB (Mass) Troponin I Total Protein 4.2 L Albumin 2.3 L D Globulin 1.9 L Albumin/Globulin Ratio 1.2 10/13/18 07:28 WBC 16.1 H RBC 5.19 Hgb 11.5 L Hct 37.8 MCV 72.9 L MCH 22.1 L MCHC 30.3 L RDW 13.7 Plt Count 225 MPV 8.8 Neut % (Auto) 93.6 H Lymph % (Auto) 4.9 L [place] % (Auto) 1.4 Eos % (Auto) 0.0 Baso % (Auto) 0.1 Neut # (Auto) 15.1 H Lymph # (Auto) 0.8 L [place] # (Auto) 0.2 Eos # (Auto) 0.0 Baso # (Auto) 0.0 Neutrophils % (Manual) Band Neutrophils % Lymphocytes % (Manual) Monocytes % (Manual) Platelet Estimate Hypochromasia (manual) Poikilocytosis (manual Anisocytosis (manual) Puncture Site pCO2 pO2 HCO3 ABG pH ABG Total CO2 ABG O2 Saturation ABG Base Excess ABG Hemoglobin ABG Carboxyhemoglobin POC ABG HHb (Measured) ABG Methemoglobin [place] Test A-a O2 Difference Respiratory Index Hgb O2 Saturation Vent Mode Mechanical Rate FiO2 Tidal Volume PEEP Sodium Potassium Chloride Carbon Dioxide Anion Gap BUN Creatinine Est GFR ( Amer) Est GFR (Non-Af Amer) POC Glucose (mg/dL) Random Glucose Calcium Phosphorus Magnesium Total Bilirubin AST ALT Alkaline Phosphatase Total Creatine Kinase CK-MB (Mass) Troponin I Total Protein Albumin Globulin Albumin/Globulin Ratio Radiology Impressions: Radiology Impressions Chest X-Ray 10/12/18 16:17 IMPRESSION: In situ ETT in good position. Minor bibasilar atelectasis EKG/Cardiology Studies: Cardiology / EKG Studies 10/12/18 18:08 EKG [ELECTROCARDIOGRAM] Routine Comment: Mode Of Transportation: Reason For Exam: intubated Fingerstick Blood Sugar Results: 126 Review of Systems - Constitutional Constitutional: absent: Fever, Chills, Sweats - EENT Eyes: UNREMARKABLE. absent: Blurred Vision Ears: UNREMARKABLE Nose/Mouth/Throat: UNREMARKABLE - Cardiovascular Cardiovascular: UNREMARKABLE. absent: Chest Pain, Chest Pain at Rest - Respiratory Respiratory: UNREMARKABLE. absent: Dyspnea - Gastrointestinal Gastrointestinal: UNREMARKABLE. absent: Abdominal Pain, Belching - Genitourinary Genitourinary: UNREMARKABLE - Reproductive: Male Reproductive:Male: UNREMARKABLE - Musculoskeletal Musculoskeletal: UNREMARKABLE - Neurological Neurological: UNREMARKABLE. absent: Headaches - Psychiatric Psychiatric: UNREMARKABLE. absent: Anxiety - Endocrine Endocrine: UNREMARKABLE - Hematologic/Lymphatic Hematologic: UNREMARKABLE Critical Care Progress Note - Extremities/Vascular Does the Patient have a Wing Catheter?: No Does the Patient need a Wing Catheter?: No - Prophylaxis GI Prophylaxis GI: PPI - Prophylaxis DVT Prophylaxis DVT: Heparin SQ - Nutrition Nutrition: Nutrition Category Date Time Status Pureed [Dysphagia/Modified Consistency Diet] [DIET] Diets 10/13/18 Breakfast Active Assessment/Plan - Assessment and Plan (Free Text) Assessment: 38 year old male with PMHx with Asthma who presented to the hospital for SDS for Achilles Tendon repair. Following administration of Ancef and incision in OR, patient became hypotensive secondary to anaphylactic reaction. Extubated 10/13 w/ no issues. Patient A&O x3, no respiratory issues, tolerating oral secretions. Will require doxycycline 100 mg PO Q12H X7 days for R foot wound. Will require prednison pack. Stable for downgrade to medical floor. Plan: Neuro - Extubated - A&O x3 - no acute issues Cardiac - Stable vitals - Continue to monitor - EKG NSR @ 93, QTc 460 Pulm - CXR 10/12: Minor bibasilar atelectasis - c/w Solumedrol 40mg q6h X 1 day - D/C Benadryl 25mg PRN - AM ABG wnl GI - regular diet Heme - H/H: 12s/39s - continue to monitor Renal - BUN/Cr 9/0.9 - D/C Condom catheter - replenish electrolytes ID - Afebrile, WBC 16.1 - hx of foot ulcer/wound on R foot, unable to visualize due to cast - D/C moxifloxacin 10/12 - 10/13 - Will start doxycycline 100 mg PO day X 7 days PPx - DVT ppx: Heparin SC, scds on L LE - GI ppx: protonix <Jessica Granda M - Last Filed: 10/13/18 12:02> CCU Subjective - Physician Review Critical Care Time Spent (in minutes): 36 CCU Objective - Vital Signs / Intake & Output Vital Signs (Last 4 hours): Vital Signs Pulse Resp BP Pulse Ox 10/13/18 11:00 99 H 16 98 10/13/18 10:50 96 H 18 98 10/13/18 10:40 91 H 20 96 10/13/18 10:30 98 H 15 98 10/13/18 10:20 101 H 15 97 10/13/18 10:10 98 H 20 97 10/13/18 10:00 99 H 17 98 10/13/18 09:50 105 H 25 H 99 10/13/18 09:40 106 H 21 97 10/13/18 09:30 108 H 23 97 10/13/18 09:20 105 H 16 97 10/13/18 09:14 108 H 18 129/88 97 10/13/18 09:10 106 H 22 97 10/13/18 09:00 105 H 20 100 10/13/18 08:50 105 H 20 99 10/13/18 08:40 105 H 23 100 10/13/18 08:30 107 H 21 99 10/13/18 08:20 108 H 23 99 10/13/18 08:14 109 H 22 130/82 99 10/13/18 08:10 107 H 24 98 10/13/18 08:01 108 H 21 126/82 98 Intake and Output (Last 8hrs): Intake & Output 10/12/18 10/13/18 10/13/18 22:59 06:59 14:59 Intake Total 4928.7 2341.4 Output Total 900 Balance 4928.7 1441.4 Weight 190 lb Intake: IV 640 175 Intake, IV Amount 4288.7 2166.4 Right Hand 3750 2000 Right hand 2 133.6 146.7 left ac 400 rt hand pb 5.1 19.7 Output: Urine 900 Condom 900 - Medications Active Medications: Active Medications Generic Name Dose Route Start Last Admin Trade Name Freq PRN Reason Stop Dose Admin Albuterol/Ipratropium 3 ml 10/12/18 18:33 10/13/18 07:30 Duoneb 3 Mg/0.5 Mg (3 Ml) Ud INH 3 ml RQ4 CRISTELA Administration Doxycycline Hyclate 100 mg 10/13/18 11:00 10/13/18 11:24 Doryx PO 10/16/18 11:01 100 mg Q12H CRISTELA Administration Protocol Heparin Sodium (Porcine) 5,000 units 10/12/18 22:00 10/13/18 06:03 Heparin SC 5,000 units Q8 CRISTELA Administration Sodium Chloride 1,000 mls @ 75 mls/hr 10/13/18 08:45 10/13/18 08:50 Sodium Chloride 0.9% IV 75 mls/hr .[id number] CRISTELA Administration Potassium Chloride 20 meq in 100 mls @ 50 mls/hr 10/13/18 09:45 10/13/18 11:29 Potassium Chloride 20 Meq/100 Ml IVPB 10/13/18 13:44 50 mls/hr Q2H CRISTELA Administration Potassium Phosphate 15 mmole/ 255 mls @ 42.5 mls/hr 10/13/18 09:45 10/13/18 10:00 Dextrose IVPB 10/13/18 15:44 42.5 mls/hr ONCE ONE Administration Methylprednisolone 40 mg 10/12/18 16:30 10/13/18 09:32 Solu-Medrol IVP 40 mg Q6H CRISTELA Administration Pantoprazole Sodium 40 mg 10/13/18 10:00 10/13/18 09:26 Protonix Ec Tab PO 40 mg DAILY CRISTELA Administration - Patient Studies Lab Studies: Lab Studies 10/13/18 10/13/18 10/13/18 Range/Units 07:28 06:25 05:48 WBC 16.1 H (4.8-10.8) K/uL RBC 5.19 (4.40-5.90) Mil/uL Hgb 11.5 L (12.0-18.0) g/dL Hct 37.8 (35.0-51.0) % MCV 72.9 L (80.0-94.0) fL MCH 22.1 L (27.0-31.0) pg MCHC 30.3 L (33.0-37.0) g/dL RDW 13.7 (11.5-14.5) % Plt Count 225 (130-400) K/uL MPV 8.8 (7.2-11.7) fL Neut % (Auto) 93.6 H (50.0-75.0) % Lymph % (Auto) 4.9 L (20.0-40.0) % [place] % (Auto) 1.4 (0.0-10.0) % Eos % (Auto) 0.0 (0.0-4.0) % Baso % (Auto) 0.1 (0.0-2.0) % Neut # (Auto) 15.1 H (1.8-7.0) K/uL Lymph # (Auto) 0.8 L (1.0-4.3) K/uL [place] # (Auto) 0.2 (0.0-0.8) K/uL Eos # (Auto) 0.0 (0.0-0.7) K/uL Baso # (Auto) 0.0 (0.0-0.2) K/uL Neutrophils % (Manual) 90 H (50-75) % Band Neutrophils % 3 H (0-2) % Lymphocytes % (Manual) 5 L (20-40) % Monocytes % (Manual) 2 (0-10) % Platelet Estimate Normal (NORMAL) Large Platelets Present Giant Platelets Present Polychromasia Slight Hypochromasia (manual) Slight Poikilocytosis (manual Anisocytosis (manual) Slight Microcytosis (manual) Slight Puncture Site pCO2 (35-45) mm/Hg pO2 (80-100) mm/Hg HCO3 (21-28) mmol/L ABG pH (7.35-7.45) ABG Total CO2 (22-28) mmol/L ABG O2 Saturation (95-98) % ABG Base Excess (-2.0-3.0) mmol/L ABG Hemoglobin (11.7-17.4) g/dL ABG Carboxyhemoglobin (0.5-1.5) % POC ABG HHb (Measured) (0.0-5.0) % ABG Methemoglobin (0.0-3.0) % [place] Test A-a O2 Difference mm/Hg Respiratory Index Hgb O2 Saturation (95.0-98.0) % Vent Mode Mechanical Rate FiO2 % Tidal Volume PEEP Sodium 139 (132-148) mmol/L Potassium 3.2 L (3.6-5.2) mmol/L Chloride 117 H (98-107) mmol/L Carbon Dioxide 15 L (22-30) mmol/L Anion Gap 10 (10-20) BUN 9 (9-20) mg/dL Creatinine 0.6 L (0.8-1.5) mg/dL Est GFR ( Amer) > 60 Est GFR (Non-Af Amer) > 60 POC Glucose (mg/dL) 126 H (65-110) mg/dL Random Glucose 114 H (75-110) mg/dL Calcium 5.8 L* D (8.6-10.4) mg/dl Phosphorus 2.0 L (2.5-4.5) mg/dL Magnesium 1.7 (1.6-2.3) mg/dL Total Bilirubin 0.6 (0.2-1.3) mg/dL AST 33 (17-59) U/L ALT 65 (21-72) U/L Alkaline Phosphatase 35 L D (38-126) U/L Total Creatine Kinase (55-170) U/L CK-MB (Mass) (0.0-3.38) ng/mL Troponin I (0.00-0.120) ng/mL Total Protein 4.2 L (6.3-8.3) g/dL Albumin 2.3 L D (3.5-5.0) g/dL Globulin 1.9 L (2.2-3.9) gm/dL Albumin/Globulin Ratio 1.2 (1.0-2.1) 10/13/18 10/12/18 10/12/18 Range/Units 05:24 23:39 18:26 WBC (4.8-10.8) K/uL RBC (4.40-5.90) Mil/uL Hgb (12.0-18.0) g/dL Hct (35.0-51.0) % MCV (80.0-94.0) fL MCH (27.0-31.0) pg MCHC (33.0-37.0) g/dL RDW (11.5-14.5) % Plt Count (130-400) K/uL MPV (7.2-11.7) fL Neut % (Auto) (50.0-75.0) % Lymph % (Auto) (20.0-40.0) % [place] % (Auto) (0.0-10.0) % Eos % (Auto) (0.0-4.0) % Baso % (Auto) (0.0-2.0) % Neut # (Auto) (1.8-7.0) K/uL Lymph # (Auto) (1.0-4.3) K/uL [place] # (Auto) (0.0-0.8) K/uL Eos # (Auto) (0.0-0.7) K/uL Baso # (Auto) (0.0-0.2) K/uL Neutrophils % (Manual) (50-75) % Band Neutrophils % (0-2) % Lymphocytes % (Manual) (20-40) % Monocytes % (Manual) (0-10) % Platelet Estimate (NORMAL) Large Platelets Giant Platelets Polychromasia Hypochromasia (manual) Poikilocytosis (manual Anisocytosis (manual) Microcytosis (manual) Puncture Site L brac pCO2 37 (35-45) mm/Hg pO2 107 H (80-100) mm/Hg HCO3 21.3 (21-28) mmol/L ABG pH 7.35 (7.35-7.45) ABG Total CO2 21.5 L (22-28) mmol/L ABG O2 Saturation 99.4 H (95-98) % ABG Base Excess -4.7 L (-2.0-3.0) mmol/L ABG Hemoglobin 11.6 L (11.7-17.4) g/dL ABG Carboxyhemoglobin 2.3 H (0.5-1.5) % POC ABG HHb (Measured) 0.6 (0.0-5.0) % ABG Methemoglobin 0.7 (0.0-3.0) % [place] Test Na A-a O2 Difference 132.0 mm/Hg Respiratory Index 1.2 Hgb O2 Saturation 96.4 (95.0-98.0) % Vent Mode Prvc Mechanical Rate 16 FiO2 40.0 % Tidal Volume 450 PEEP 5 Sodium 139 (132-148) mmol/L Potassium 3.9 (3.6-5.2) mmol/L Chloride 108 H (98-107) mmol/L Carbon Dioxide 23 (22-30) mmol/L Anion Gap 11 (10-20) BUN 13 (9-20) mg/dL Creatinine 0.9 (0.8-1.5) mg/dL Est GFR ( Amer) > 60 Est GFR (Non-Af Amer) > 60 POC Glucose (mg/dL) 154 H (65-110) mg/dL Random Glucose 102 (75-110) mg/dL Calcium 7.8 L (8.6-10.4) mg/dl Phosphorus 3.3 (2.5-4.5) mg/dL Magnesium 1.5 L (1.6-2.3) mg/dL Total Bilirubin 0.9 (0.2-1.3) mg/dL AST 45 (17-59) U/L ALT 80 H (21-72) U/L Alkaline Phosphatase 49 (38-126) U/L Total Creatine Kinase 118 (55-170) U/L CK-MB (Mass) 0.54 (0.0-3.38) ng/mL Troponin I 0.0190 (0.00-0.120) ng/mL Total Protein 5.1 L (6.3-8.3) g/dL Albumin 3.0 L (3.5-5.0) g/dL Globulin 2.1 L (2.2-3.9) gm/dL Albumin/Globulin Ratio 1.4 (1.0-2.1) 10/12/18 Range/Units 18:26 WBC 14.9 H (4.8-10.8) K/uL RBC 5.46 (4.40-5.90) Mil/uL Hgb 12.3 (12.0-18.0) g/dL Hct 39.7 (35.0-51.0) % MCV 72.7 L (80.0-94.0) fL MCH 21.9 L (27.0-31.0) pg MCHC 30.1 L (33.0-37.0) g/dL RDW 13.7 (11.5-14.5) % Plt Count 228 (130-400) K/uL MPV 8.9 (7.2-11.7) fL Neut % (Auto) 86.2 H (50.0-75.0) % Lymph % (Auto) 8.6 L (20.0-40.0) % [place] % (Auto) 4.4 (0.0-10.0) % Eos % (Auto) 0.3 (0.0-4.0) % Baso % (Auto) 0.5 (0.0-2.0) % Neut # (Auto) 12.9 H (1.8-7.0) K/uL Lymph # (Auto) 1.3 (1.0-4.3) K/uL [place] # (Auto) 0.7 (0.0-0.8) K/uL Eos # (Auto) 0.0 (0.0-0.7) K/uL Baso # (Auto) 0.1 (0.0-0.2) K/uL Neutrophils % (Manual) 79 H (50-75) % Band Neutrophils % 8 H (0-2) % Lymphocytes % (Manual) 10 L (20-40) % Monocytes % (Manual) 3 (0-10) % Platelet Estimate Normal (NORMAL) Large Platelets Giant Platelets Polychromasia Hypochromasia (manual) Slight Poikilocytosis (manual Slight Anisocytosis (manual) Slight Microcytosis (manual) Puncture Site pCO2 (35-45) mm/Hg pO2 (80-100) mm/Hg HCO3 (21-28) mmol/L ABG pH (7.35-7.45) ABG Total CO2 (22-28) mmol/L ABG O2 Saturation (95-98) % ABG Base Excess (-2.0-3.0) mmol/L ABG Hemoglobin (11.7-17.4) g/dL ABG Carboxyhemoglobin (0.5-1.5) % POC ABG HHb (Measured) (0.0-5.0) % ABG Methemoglobin (0.0-3.0) % [place] Test A-a O2 Difference mm/Hg Respiratory Index Hgb O2 Saturation (95.0-98.0) % Vent Mode Mechanical Rate FiO2 % Tidal Volume PEEP Sodium (132-148) mmol/L Potassium (3.6-5.2) mmol/L Chloride (98-107) mmol/L Carbon Dioxide (22-30) mmol/L Anion Gap (10-20) BUN (9-20) mg/dL Creatinine (0.8-1.5) mg/dL Est GFR ( Amer) Est GFR (Non-Af Amer) POC Glucose (mg/dL) (65-110) mg/dL Random Glucose (75-110) mg/dL Calcium (8.6-10.4) mg/dl Phosphorus (2.5-4.5) mg/dL Magnesium (1.6-2.3) mg/dL Total Bilirubin (0.2-1.3) mg/dL AST (17-59) U/L ALT (21-72) U/L Alkaline Phosphatase (38-126) U/L Total Creatine Kinase (55-170) U/L CK-MB (Mass) (0.0-3.38) ng/mL Troponin I (0.00-0.120) ng/mL Total Protein (6.3-8.3) g/dL Albumin (3.5-5.0) g/dL Globulin (2.2-3.9) gm/dL Albumin/Globulin Ratio (1.0-2.1) Laboratory Results - last 24 hr 10/12/18 10/12/18 10/12/18 18:26 18:26 23:39 WBC 14.9 H RBC 5.46 Hgb 12.3 Hct 39.7 MCV 72.7 L MCH 21.9 L MCHC 30.1 L RDW 13.7 Plt Count 228 MPV 8.9 Neut % (Auto) 86.2 H Lymph % (Auto) 8.6 L [place] % (Auto) 4.4 Eos % (Auto) 0.3 Baso % (Auto) 0.5 Neut # (Auto) 12.9 H Lymph # (Auto) 1.3 [place] # (Auto) 0.7 Eos # (Auto) 0.0 Baso # (Auto) 0.1 Neutrophils % (Manual) 79 H Band Neutrophils % 8 H Lymphocytes % (Manual) 10 L Monocytes % (Manual) 3 Platelet Estimate Normal Large Platelets Giant Platelets Polychromasia Hypochromasia (manual) Slight Poikilocytosis (manual Slight Anisocytosis (manual) Slight Microcytosis (manual) Puncture Site pCO2 pO2 HCO3 ABG pH ABG Total CO2 ABG O2 Saturation ABG Base Excess ABG Hemoglobin ABG Carboxyhemoglobin POC ABG HHb (Measured) ABG Methemoglobin [place]o Test A-a O2 Difference Respiratory Index Hgb O2 Saturation Vent Mode Mechanical Rate FiO2 Tidal Volume PEEP Sodium 139 Potassium 3.9 Chloride 108 H Carbon Dioxide 23 Anion Gap 11 BUN 13 Creatinine 0.9 Est GFR ( Amer) > 60 Est GFR (Non-Af Amer) > 60 POC Glucose (mg/dL) 154 H Random Glucose 102 Calcium 7.8 L Phosphorus 3.3 Magnesium 1.5 L Total Bilirubin 0.9 AST 45 ALT 80 H Alkaline Phosphatase 49 Total Creatine Kinase 118 CK-MB (Mass) 0.54 Troponin I 0.0190 Total Protein 5.1 L Albumin 3.0 L Globulin 2.1 L Albumin/Globulin Ratio 1.4 10/13/18 10/13/18 10/13/18 05:24 05:48 06:25 WBC RBC Hgb Hct MCV MCH MCHC RDW Plt Count MPV Neut % (Auto) Lymph % (Auto) [place] % (Auto) Eos % (Auto) Baso % (Auto) Neut # (Auto) Lymph # (Auto) [place] # (Auto) Eos # (Auto) Baso # (Auto) Neutrophils % (Manual) Band Neutrophils % Lymphocytes % (Manual) Monocytes % (Manual) Platelet Estimate Large Platelets Giant Platelets Polychromasia Hypochromasia (manual) Poikilocytosis (manual Anisocytosis (manual) Microcytosis (manual) Puncture Site L brac pCO2 37 pO2 107 H HCO3 21.3 ABG pH 7.35 ABG Total CO2 21.5 L ABG O2 Saturation 99.4 H ABG Base Excess -4.7 L ABG Hemoglobin 11.6 L ABG Carboxyhemoglobin 2.3 H POC ABG HHb (Measured) 0.6 ABG Methemoglobin 0.7 [place] Test Na A-a O2 Difference 132.0 Respiratory Index 1.2 Hgb O2 Saturation 96.4 Vent Mode Prvc Mechanical Rate 16 FiO2 40.0 Tidal Volume 450 PEEP 5 Sodium 139 Potassium 3.2 L Chloride 117 H Carbon Dioxide 15 L Anion Gap 10 BUN 9 Creatinine 0.6 L Est GFR ( Amer) > 60 Est GFR (Non-Af Amer) > 60 POC Glucose (mg/dL) 126 H Random Glucose 114 H Calcium 5.8 L* D Phosphorus 2.0 L Magnesium 1.7 Total Bilirubin 0.6 AST 33 ALT 65 Alkaline Phosphatase 35 L D Total Creatine Kinase CK-MB (Mass) Troponin I Total Protein 4.2 L Albumin 2.3 L D Globulin 1.9 L Albumin/Globulin Ratio 1.2 10/13/18 07:28 WBC 16.1 H RBC 5.19 Hgb 11.5 L Hct 37.8 MCV 72.9 L MCH 22.1 L MCHC 30.3 L RDW 13.7 Plt Count 225 MPV 8.8 Neut % (Auto) 93.6 H Lymph % (Auto) 4.9 L [place] % (Auto) 1.4 Eos % (Auto) 0.0 Baso % (Auto) 0.1 Neut # (Auto) 15.1 H Lymph # (Auto) 0.8 L [place] # (Auto) 0.2 Eos # (Auto) 0.0 Baso # (Auto) 0.0 Neutrophils % (Manual) 90 H Band Neutrophils % 3 H Lymphocytes % (Manual) 5 L Monocytes % (Manual) 2 Platelet Estimate Normal Large Platelets Present Giant Platelets Present Polychromasia Slight Hypochromasia (manual) Slight Poikilocytosis (manual Anisocytosis (manual) Slight Microcytosis (manual) Slight Puncture Site pCO2 pO2 HCO3 ABG pH ABG Total CO2 ABG O2 Saturation ABG Base Excess ABG Hemoglobin ABG Carboxyhemoglobin POC ABG HHb (Measured) ABG Methemoglobin [place] Test A-a O2 Difference Respiratory Index Hgb O2 Saturation Vent Mode Mechanical Rate FiO2 Tidal Volume PEEP Sodium Potassium Chloride Carbon Dioxide Anion Gap BUN Creatinine Est GFR ( Amer) Est GFR (Non-Af Amer) POC Glucose (mg/dL) Random Glucose Calcium Phosphorus Magnesium Total Bilirubin AST ALT Alkaline Phosphatase Total Creatine Kinase CK-MB (Mass) Troponin I Total Protein Albumin Globulin Albumin/Globulin Ratio Radiology Impressions: Radiology Impressions Chest X-Ray 10/12/18 16:17 IMPRESSION: In situ ETT in good position. Minor bibasilar atelectasis Chest X-Ray 10/13/18 06:00 IMPRESSION: No active disease. EKG/Cardiology Studies: Cardiology / EKG Studies 10/12/18 18:08 EKG [ELECTROCARDIOGRAM] Routine Comment: Mode Of Transportation: Reason For Exam: intubated Critical Care Progress Note - Nutrition Nutrition: Nutrition Category Date Time Status Regular Diet [DIET] Diets 10/13/18 Breakfast Active Assessment/Plan - Assessment and Plan (Free Text) Plan: Hypoxic respiratory failure -Anaphyalxis drug reaction -wound infection/soft tissue infection -incentive spirometry -d/c all sedation -Patient remains hemodynamically stable - Date & Time Date: 10/13/18 Time: 12:02
[2018-10-13 09:16] LABS: ANISOCYTOSIS SLIGHT; BANDS 3 % (0-2); LYMPHOCYTE 5 % (20-40); MONOCYTE 2 % (0-10); NEUTROPHIL 90 % (50-75); PLATELET ESTIMATE NORMAL (NORMAL); TOTAL CELLS COUNTED 100
[2018-10-13 09:17] LABS: HYPOCHROMIC SLIGHT; LARGE PLATELETS PRESENT; MICROCYTOSIS SLIGHT; POLYCHROMIC SLIGHT
[2018-10-13 09:18] LABS: GIANT PLATELETS PRESENT
[2018-10-13] MEDS ORDERED: Potassium Phosphate 15 MMOLE in Dextrose 5% In Water 250 ML IVPB ONE ×2 (09:21→09:45)
--- NOTE | 2018-10-13 09:26 | CP.PCM.PN ---
Subjective - Date & Time of Evaluation Date of Evaluation: 10/13/18 Time of Evaluation: 09:19 - Subjective Subjective: Pt lying in bed, comfortable. Family bedside. Extubated, talking and in good spirits. No complaints. Pain rated 0/10. Denies CP, SOB, SHEPPARD, N&V, fevers, chills, numbness or tingling, calf pain. Objective - Vital Signs/Intake and Output Vital Signs (last 24 hours): Temp Pulse Resp BP Pulse Ox 97.4 F L 108 H 21 126/82 98 10/13/18 04:00 10/13/18 08:01 10/13/18 08:01 10/13/18 08:01 10/13/18 08:01 Intake and Output: 10/13/18 10/13/18 06:59 18:59 Intake Total 4623.9 Output Total 900 Balance 3723.9 - Medications Medications: Current Medications Albuterol/Ipratropium (Duoneb 3 Mg/0.5 Mg (3 Ml) Ud) 3 ml INH RQ4 CRISTELA Last Admin: 10/13/18 07:30 Dose: 3 ml Heparin Sodium (Porcine) (Heparin) 5,000 units SC Q8 CRISTELA Last Admin: 10/13/18 06:03 Dose: 5,000 units Moxifloxacin HCl (Avelox Iv 400mg/250ml Ns) 400 mg in 250 mls @ 167 mls/hr IVPB Q24H CRISTELA; Protocol Last Admin: 10/12/18 20:45 Dose: 167 mls/hr Calcium Gluconate 2,000 mg/ (Sodium Chloride) 270 mls @ 125 mls/hr IVPB ONCE ONE Stop: 10/13/18 11:09 Potassium Chloride (Potassium Chloride 20 Meq/100 Ml) 20 meq in 100 mls @ 50 mls/hr IVPB Q2H CRISTELA Stop: 10/13/18 13:14 Sodium Chloride (Sodium Chloride 0.9%) 1,000 mls @ 75 mls/hr IV .[id number] CRISTELA Methylprednisolone (Solu-Medrol) 40 mg IVP Q6H CRISTELA Last Admin: 10/13/18 04:26 Dose: 40 mg Pantoprazole Sodium (Protonix Ec Tab) 40 mg PO DAILY CRISTELA - Labs Labs: 10/13/18 07:28 10/13/18 06:25 - Extremities Exam Additional comments: Right Lower Extremity: bivalved short leg equinus cast c/d/i, no swelling/warmth/redness, full ROM at all joints w/o pain, no instability +5/5 motor strength hip flex/ext, knee flex/ext, toes up and down sensory intact L2-S1, SPN/DPN/TN BCR all toes, 2+ DP palpated, PT not accessible due to cast (palpated prior to cast being placed in OR, 2+) Left Lower Extremity: no swelling/warmth/redness, full ROM at all joints w/o pain, no instability, skin intact +5/5 motor strength hip flex/ext, knee flex/ext, ankle df/pf, toes up and down sensory intact L2-S1, SPN/DPN/TN BCR all toes, 2+ DP/PT pulses palpated Calves soft / nt Assessment and Plan - Assessment and Plan (Free Text) Assessment: 38 yo Male, w/ R foot/ankle pain and weakness s/p non-contact injury during basketball game on 09/12/18. Dx= R foot/ankle Michael's tendon tear Plan for surgery = primary Achilles repair 10/12/18 as outpt surgery at [facility]. Surgery aborted due to hypotensive episode, most likely allergic reaction/ anaphylaxis. skin wound closed, placed in well padded short leg cast in Equines position- closed treatment of Michael's tendon tear. Failed leak test with anesthesia in OR prior to planned extubation. Transferred to ICU, remained intubated overnight. Extubated next day AM, 10/13/18. PLAN: I personally spent a long time this AM evaluating and speaking with pt and family. All questions about the event were answered, pt in good spirits and understands sequence of events that occurred 10/12/18. R foot/ankle: -Non-operative R foot Achilles tear tx plan discussed at length with pt and family, all questions answered. -placed in bivalved short leg cast in equinus position as closed / non-op tx of Achilles tear -cast care d/w pt and family at length -elevation -NWB RLE -DVT proph -physical therapy= ambulation, NWB, evaluation for assist ambulatory devices for DC home Hypotensive episode/ allergic reaction: -extubated this AM -respiratory tx per ICU staff -steroid, Benadryl tx to decrease swelling -stable, downgraded -possible dc home today vs tomorrow AM, decision to be made by Hospitalist service and patient, from Ortho point of view, as long as there is no medical contra-indication, he is ok for dc home today -I personally evaluated the pt for any mental issues, he appears to be at baseline mental function with no loss of memory or function from the hypotensive episode but if there is any question about mental function post-hypotensive episode, neurology should be consulted and head CT considered. Family and report that he displays intact memory and is acting appropr iately back to baseline function with no suspicion of brain injury or concern from family. After DC home: -it is imperative that the pt seek outpt access specialist/ Elevator Installer consultation to identify with high degree of certainty what the allergic reaction was caused by, IV Ancef vs Anesthesia meds?? -until this is confirmed, I do not believe that elective surgery that requires general anesthesia should be carried out. I spent a long time with the pt and his family explaining that although it is possible to attempt to go back to the OR next week for the Achilles' tendon repair, I do not advise it until the Elevator Installer has confirmed the antigen responsible for this hypotensive / allergic response. Even if the IV Ancef is switched to another family of periop IV abx such as Vancomycin, there is a possibility that the antigen was actually one of the anesthesia medications. Non-operative tx of Achilles' tendon tears is an acceptable tx option that most likely will yield favorable results and Achilles' healing. He will be in an Equines cast for 3 weeks followed by short leg cast in neutral for 3-6 weeks depending on clinical evidence of Achilles scarring n and healing, followed by 6-8 weeks in a boot and physical therapy program. We discussed the most common risk factor aside from incomplete tendon healing is the risk of re-rupture. All questions were answered and we are in agreement on the above outlined non- operative closed treatment of his R ankle Achilles tendon tear. -2 weeks Lovenox 40 SC once daily, has Rx -they have already purchased knee scooter for ambulation, NWKianna RLE -followup in my office at [facility], [facility] on 10/16/18 at 9AM as outpt Will Follow Please contact me directly with any updates, concerns, questions at [phone]. Marlin Wren MD Orthopedic Surgery
--- NOTE | 2018-10-13 09:51 | CP.PCM.HP ---
History of Present Illness - History of Present Illness History of Present Illness: 38 years old male with PMHx with Asthma, & R achilles tendon rupture presented for SDS for a right Achilles Tendon repair. Following pre-op administration of Ancef and 10-minutes after incision, patient became hypotensive which was ref ractory to fluid and Neosynephrine, ephedrine, small doses of epi. Decision was made to stop the operation. Anesthesia performed a leak test which was noted no air passing past the ET tube while intubated. Patient was kept intubated and was transferred to the ICU. Unable to obtain ROS as patient is intubated. PMHx: Asthma Allergies: Cefazolin (known after procedure) Meds: None PSHx: Cholecystectomy Social Hx: Denies tobacco, ETOH use, illicit drug use FHx: Father from [place] in mid 50s, hx of diabetes, Mother living, HTN PMD: None Present on Admission - Present on Admission Any Indicators Present on Admission: No History of DVT/PE: No History of Uncontrolled Diabetes: No Urinary Catheter: No Decubitus Ulcer Present: No Review of Systems - Review of Systems Systems not reviewed;Unavailable: Intubated Past Patient History - Past Medical History & Family History Past Medical History?: Yes - Past Social History Smoking Status: Never Smoked - CARDIAC Hx Cardiac Disorders: No - PULMONARY Hx Respiratory Disorders: No - NEUROLOGICAL Hx Neurological Disorder: No - HEENT Hx HEENT Problems: No - RENAL Hx Chronic Kidney Disease: No - ENDOCRINE/METABOLIC Hx Endocrine Disorders: No - HEMATOLOGICAL/ONCOLOGICAL Hx Blood Disorders: No - INTEGUMENTARY Hx Dermatological Problems: No - MUSCULOSKELETAL/RHEUMATOLOGICAL Hx Musculoskeletal Disorders: Yes Other/Comment: achilles tendon tear - GASTROINTESTINAL Hx Gastrointestinal Disorders: Yes Hx Gall Bladder Disease: Yes - GENITOURINARY/GYNECOLOGICAL Hx Genitourinary Disorders: No - PSYCHIATRIC Hx Psychophysiologic Disorder: No - SURGICAL HISTORY Hx Surgeries: Yes Hx Cholecystectomy: Yes - ANESTHESIA Hx Anesthesia: Yes Hx Anesthesia Reactions: No Hx Malignant Hyperthermia: No Has any member of the family had a problem w/ anesthesia?: No Meds Allergies/Adverse Reactions: Allergies Allergy/AdvReac Type Severity Reaction Status Date / Time cefazolin [From Ancef] Allergy ANAPHYLAXIS Verified 10/12/18 18:52 Physical Exam - Constitutional Appears: In Acute Distress - Head Exam Head Exam: ATRAUMATIC, NORMAL INSPECTION - Eye Exam Eye Exam: EOMI Additional comments: periorbital swelling - ENT Exam Additional comments: Intubated - Respiratory Exam Respiratory Exam: Clear to Auscultation Bilateral, NORMAL BREATHING PATTERN. absent: Rales, Rhonchi, Wheezes Additional comments: on ventilator, 15/450/40/5 - Cardiovascular Exam Cardiovascular Exam: +S1, +S2. absent: Systolic Murmur - GI/Abdominal Exam GI & Abdominal Exam: Normal Bowel Sounds, Soft - Extremities Exam Extremities exam: Positive for: normal inspection. Negative for: calf tenderness, pedal edema - Neurological Exam Additional comments: intubated Results - Vital Signs Recent Vital Signs: Last Vital Signs Temp 97.4 F L 10/13/18 04:00 Pulse 108 H 10/13/18 08:01 Resp 21 10/13/18 08:01 BP 126/82 10/13/18 08:01 Pulse Ox 98 10/13/18 08:01 - Labs Result Diagrams: 10/13/18 07:28 10/13/18 06:25 Labs: Laboratory Results - last 24 hr 10/12/18 10/12/18 10/12/18 18:26 18:26 23:39 WBC 14.9 H RBC 5.46 Hgb 12.3 Hct 39.7 MCV 72.7 L MCH 21.9 L MCHC 30.1 L RDW 13.7 Plt Count 228 MPV 8.9 Neut % (Auto) 86.2 H Lymph % (Auto) 8.6 L [place] % (Auto) 4.4 Eos % (Auto) 0.3 Baso % (Auto) 0.5 Neut # (Auto) 12.9 H Lymph # (Auto) 1.3 [place] # (Auto) 0.7 Eos # (Auto) 0.0 Baso # (Auto) 0.1 Neutrophils % (Manual) 79 H Band Neutrophils % 8 H Lymphocytes % (Manual) 10 L Monocytes % (Manual) 3 Platelet Estimate Normal Large Platelets Giant Platelets Polychromasia Hypochromasia (manual) Slight Poikilocytosis (manual Slight Anisocytosis (manual) Slight Microcytosis (manual) Puncture Site pCO2 pO2 HCO3 ABG pH ABG Total CO2 ABG O2 Saturation ABG Base Excess ABG Hemoglobin ABG Carboxyhemoglobin POC ABG HHb (Measured) ABG Methemoglobin [place]o Test A-a O2 Difference Respiratory Index Hgb O2 Saturation Vent Mode Mechanical Rate FiO2 Tidal Volume PEEP Sodium 139 Potassium 3.9 Chloride 108 H Carbon Dioxide 23 Anion Gap 11 BUN 13 Creatinine 0.9 Est GFR ( Amer) > 60 Est GFR (Non-Af Amer) > 60 POC Glucose (mg/dL) 154 H Random Glucose 102 Calcium 7.8 L Phosphorus 3.3 Magnesium 1.5 L Total Bilirubin 0.9 AST 45 ALT 80 H Alkaline Phosphatase 49 Total Creatine Kinase 118 CK-MB (Mass) 0.54 Troponin I 0.0190 Total Protein 5.1 L Albumin 3.0 L Globulin 2.1 L Albumin/Globulin Ratio 1.4 10/13/18 10/13/18 10/13/18 05:24 05:48 06:25 WBC RBC Hgb Hct MCV MCH MCHC RDW Plt Count MPV Neut % (Auto) Lymph % (Auto) [place] % (Auto) Eos % (Auto) Baso % (Auto) Neut # (Auto) Lymph # (Auto) [place] # (Auto) Eos # (Auto) Baso # (Auto) Neutrophils % (Manual) Band Neutrophils % Lymphocytes % (Manual) Monocytes % (Manual) Platelet Estimate Large Platelets Giant Platelets Polychromasia Hypochromasia (manual) Poikilocytosis (manual Anisocytosis (manual) Microcytosis (manual) Puncture Site L brac pCO2 37 pO2 107 H HCO3 21.3 ABG pH 7.35 ABG Total CO2 21.5 L ABG O2 Saturation 99.4 H ABG Base Excess -4.7 L ABG Hemoglobin 11.6 L ABG Carboxyhemoglobin 2.3 H POC ABG HHb (Measured) 0.6 ABG Methemoglobin 0.7 [place] Test Na A-a O2 Difference 132.0 Respiratory Index 1.2 Hgb O2 Saturation 96.4 Vent Mode Prvc Mechanical Rate 16 FiO2 40.0 Tidal Volume 450 PEEP 5 Sodium 139 Potassium 3.2 L Chloride 117 H Carbon Dioxide 15 L Anion Gap 10 BUN 9 Creatinine 0.6 L Est GFR ( Amer) > 60 Est GFR (Non-Af Amer) > 60 POC Glucose (mg/dL) 126 H Random Glucose 114 H Calcium 5.8 L* D Phosphorus 2.0 L Magnesium 1.7 Total Bilirubin 0.6 AST 33 ALT 65 Alkaline Phosphatase 35 L D Total Creatine Kinase CK-MB (Mass) Troponin I Total Protein 4.2 L Albumin 2.3 L D Globulin 1.9 L Albumin/Globulin Ratio 1.2 10/13/18 07:28 WBC 16.1 H RBC 5.19 Hgb 11.5 L Hct 37.8 MCV 72.9 L MCH 22.1 L MCHC 30.3 L RDW 13.7 Plt Count 225 MPV 8.8 Neut % (Auto) 93.6 H Lymph % (Auto) 4.9 L [place] % (Auto) 1.4 Eos % (Auto) 0.0 Baso % (Auto) 0.1 Neut # (Auto) 15.1 H Lymph # (Auto) 0.8 L [place] # (Auto) 0.2 Eos # (Auto) 0.0 Baso # (Auto) 0.0 Neutrophils % (Manual) 90 H Band Neutrophils % 3 H Lymphocytes % (Manual) 5 L Monocytes % (Manual) 2 Platelet Estimate Normal Large Platelets Present Giant Platelets Present Polychromasia Slight Hypochromasia (manual) Slight Poikilocytosis (manual Anisocytosis (manual) Slight Microcytosis (manual) Slight Puncture Site pCO2 pO2 HCO3 ABG pH ABG Total CO2 ABG O2 Saturation ABG Base Excess ABG Hemoglobin ABG Carboxyhemoglobin POC ABG HHb (Measured) ABG Methemoglobin [place] Test A-a O2 Difference Respiratory Index Hgb O2 Saturation Vent Mode Mechanical Rate FiO2 Tidal Volume PEEP Sodium Potassium Chloride Carbon Dioxide Anion Gap BUN Creatinine Est GFR ( Amer) Est GFR (Non-Af Amer) POC Glucose (mg/dL) Random Glucose Calcium Phosphorus Magnesium Total Bilirubin AST ALT Alkaline Phosphatase Total Creatine Kinase CK-MB (Mass) Troponin I Total Protein Albumin Globulin Albumin/Globulin Ratio Assessment & Plan - Assessment and Plan (Free Text) Assessment: 38 year old male with PMHx with Asthma who presented to the hospital for SDS for Achilles Tendon repair. Following administration of Ancef and incision in OR, patient became hypotensive secondary to anaphylactic reaction. Currently intubated, receiving methylprednisone & benadryl. On propofol & versed drip Plan: Neuro - Intubated and sedated - Propofol drip - no acute issues Cardiac - Tachycardic, Hypotensive 2/2 anaphylactic shock - NS bolus x7 - EKG to assess for QTc Pulm - Intubated on PRVC 15/450/40/5 - CXR 10/12: Minor bibasilar atelectasis - start Solumedrol 40mg q6h - Benadryl 25mg PRN - CXR in AM - f/u ABG GI - NPO, intubated - 1 episode of vomiting - will monitor Heme - H/H: 12s/39s - continue to monitor Renal - BUN/Cr 13s/0.9 - Condom catheter - monitor I & O - replenish electrolytes ID - Afebrile, WBC 14.9 - hx of foot ulcer/wound on R foot, unable to visualize due to cast - will start moxifloxacin empirically - f/u CBC PPx - DVT ppx: Heparin SC, scds on L LE - GI ppx: pepsid
[2018-10-13] MEDS ORDERED: Pantoprazole 40 mg EC Tab PO SCH (10:00)
--- NOTE | 2018-10-13 10:15 | RAD ---
Date of service: 10/13/2018 HISTORY: intubated COMPARISON: 10/12/2018 FINDINGS: LUNGS: No active pulmonary disease. PLEURA: No significant pleural effusion identified, no pneumothorax apparent. CARDIOVASCULAR: No aortic atherosclerotic calcification present. Normal cardiac size. No congestive change. ET tube unchanged. OSSEOUS STRUCTURES: No significant abnormalities. VISUALIZED UPPER ABDOMEN: Normal. OTHER FINDINGS: None. IMPRESSION: No active disease.
--- NOTE | 2018-10-13 13:33 | CP.PCM.PN ---
Subjective - Date & Time of Evaluation Date of Evaluation: 10/13/18 Time of Evaluation: 10:30 - Subjective Subjective: Hospitalist Progress Note Patient was seen and examined at 10:30 AM 10/13/18 ICU Bed 4 38 year male with NO significant PMHx was undergoing Right Achiles Tendon Tear Repair on 10/12/18 when he developed Anaphylaxis (erythematous hives on arms/back with edema of the face/orbits/lips/ears as well as hypotension and respiratory distress) a few minutes after Ancef was administered. Patient was intubated, steroids started, and trasnferred to the ICU for further management and monitoring. He was successfully extubated on 10/13/18. Currently upon FULL ROS: NO soreness in throat NO palpitations NO chest pain NO abdominal pain NO n/v/d/c NO SOB/Cough/Wheezing NO headaches NO new changes in vision NO new changes in hearing NO paresthesias Feels as if his arms/hands (with right > left) are cold Exam: General: AAOX3, NAD, Resting comfortably HEENT: NCA, EOMI, PERRLA, NO pharyngeal erythema/exudate, NO cervical/supraclavicular/submandibular lymphadenopathy, NO thyromegaly, Nasal Turbinates are moist without edema/erythema Cardio: NS1 and NS2, NO M/R/G Resp: CTA B/L, NO R/R/W GI: BSx4, Soft, NT, ND, NO HSM, NO guarding/rebound tenderness Ext: Pulses are strong and equal, Capillary Refill is 2 seconds, NO Edema, Normal color Neuro: CN II through XII are grossly intact Skin: NO erythematous hives/rashes noted on arms, hands, abdomen, chest, back, legs. Multiple/Extensive tatoos on arms, chest, abdomen Assessment and Plan: 1). Anaphylaxis Status: Resolved Extubated 10/13/18 morning Solumedrol 40 mg IV Q12H Will discharge on Prednisone Taper 45-50-95-20-10, EpiPen Warned about the future use of Cephalosporins AND PCNs 2). Right Achilles Tendon Tear Status: Acute Currently has bivalve short leg cast in equinus position Doxycline 100 mg PO 2x/day for total of 7 days starting 10/13/18 Dr. Kamar Gerber has discussed cast care with patient and his He is to be NONweight bearing on the right leg and to use scooter: contacted family friend to bring this by from home Dr. Kamar Gerber has already provided with Rx for Lovenox 40 mg SC 1x/day for 14 days to and I confirmed with her that she has already submitted to their pharmacy. Spoke with Nurse Capps and he will show/educate patient and on administration Patient to follow up with Dr. Kamar Gerber at his office this Monday10/16/18 morning 3). Leukocytosis Status: Acute Likely secondary to Solumedrol and stress response Chest X Rays do NOT show any active disease There are NO fevers 4). Hypokalemia Status: Acute Repleted with Potassium Phosphate 15 mmol IV x 1 dose AND KCl 20 mEQ IV x 2 doses by the ICU Team 5). Hypocalcemia Status: Acute Repleted with Calcium Gluconate 2,000 mg x 1 dose by ICU Team 6). Prophylaxis Heparin 5,000 Units SC Q8H Protonix 40 mg PO 1x/day Disposition: Patient and will need to be educated on Lovenox administration Electrolyte abnormalities will need to resolve Scooter from home will need to be delivered. If unable then patient has crutches at bedside D/C anticipated morning 10/14/18 Rx to be provided upon discharge: Prednisone Taper 87-70-48-20-10, EpiPen, Doxycycline 100 mg PO 2x/day for 7 days F/U Dr. Duenas Monday10/16/18 morning Alfonso Granda D.O. Objective - Vital Signs/Intake and Output Vital Signs (last 24 hours): Temp Pulse Resp BP Pulse Ox 97.4 F L 99 H 16 129/88 98 10/13/18 04:00 10/13/18 11:00 10/13/18 11:00 10/13/18 09:14 10/13/18 11:00 Intake and Output: 10/13/18 10/13/18 06:59 18:59 Intake Total 4623.9 Output Total 900 Balance 3723.9 - Medications Medications: Current Medications Albuterol/Ipratropium (Duoneb 3 Mg/0.5 Mg (3 Ml) Ud) 3 ml INH RQ4 CRISTELA Last Admin: 10/13/18 07:30 Dose: 3 ml Doxycycline Hyclate (Doryx) 100 mg PO Q12H [facility]; Protocol Stop: 10/16/18 11:01 Last Admin: 10/13/18 11:24 Dose: 100 mg Heparin Sodium (Porcine) (Heparin) 5,000 units SC Q8 CRISTELA Last Admin: 10/13/18 06:03 Dose: 5,000 units Sodium Chloride (Sodium Chloride 0.9%) 1,000 mls @ 75 mls/hr IV .[id number] [facility] Last Admin: 10/13/18 08:50 Dose: 75 mls/hr Potassium Chloride (Potassium Chloride 20 Meq/100 Ml) 20 meq in 100 mls @ 50 mls/hr IVPB Q2H CRISTELA Stop: 10/13/18 13:44 Last Admin: 10/13/18 11:29 Dose: 50 mls/hr Potassium Phosphate 15 mmole/ (Dextrose) 255 mls @ 42.5 mls/hr IVPB ONCE ONE Stop: 10/13/18 15:44 Last Admin: 10/13/18 10:00 Dose: 42.5 mls/hr Methylprednisolone (Solu-Medrol) 40 mg IVP Q6H [facility] Last Admin: 10/13/18 09:32 Dose: 40 mg Pantoprazole Sodium (Protonix Ec Tab) 40 mg PO DAILY [facility] Last Admin: 10/13/18 09:26 Dose: 40 mg - Labs Labs: 10/13/18 07:28 10/13/18 06:25
[2018-10-13 20:46] VITALS: RESP 18
[2018-10-14] MEDS: Albuterol-Ipratrop 3 mg / 0.5 (3 ml) UD INH SCH ×3 (00:08→07:54)
[2018-10-14] MEDS: MethylPREDNISolone 40 mg Vial IVP SCH (04:45)
[2018-10-14 05:55] LABS: BASO % 0.2 % (0.0-2.0); HEMOGLOBIN 10.6 g/dL (12.0-18.0); LYMPH % 5.7 % (20.0-40.0); MEAN CELL VOLUME 72.3 fL (80.0-94.0); MEAN CORPUSCULAR HEMOGLOBIN 21.8 pg (27.0-31.0); MEAN CORPUSCULAR HGB CONC 30.1 g/dL (33.0-37.0); MEAN PLATELET VOLUME 8.5 fL (7.2-11.7); MONO # 0.5 K/uL (0.0-0.8); MONO % 3.1 % (0.0-10.0); NEUT # 15.6 K/uL (1.8-7.0); PLATELET COUNT 230 K/uL (130-400); RBC 4.89 Mil/uL (4.40-5.90); RED CELL DISTRIBUTION WIDTH 13.5 % (11.5-14.5); WHITE BLOOD COUNT 17.1 K/uL (4.8-10.8)
[2018-10-14 06:12] LABS: ALB/GLOB RATIO 1.5 (1.0-2.1); ALBUMIN 3.4 g/dL (3.5-5.0); ALT/SGPT 63 U/L (21-72); AST/SGOT 35 U/L (17-59); BLOOD UREA NITROGEN 13 mg/dL (9-20); CALCIUM 8.5 mg/dl (8.6-10.4); GFR NON-AFRICAN AMERICAN > 60
[2018-10-14 08:36] VITALS: BP 120/68; PULSE 96; TEMP 98.8; O2SAT 96
[2018-10-14 08:47] LABS: BANDS 2 % (0-2); LYMPHOCYTE 8 % (20-40); MONOCYTE 5 % (0-10); NEUTROPHIL 85 % (50-75); PLATELET ESTIMATE NORMAL (NORMAL); TOTAL CELLS COUNTED 100
[2018-10-14 08:48] LABS: ANISOCYTOSIS SLIGHT
[2018-10-14 08:49] LABS: HYPOCHROMIC MODERATE; MICROCYTOSIS SLIGHT; POIKILOCYTOSIS SLIGHT; POLYCHROMIC SLIGHT
[2018-10-14 08:50] LABS: OVALOCYTES SLIGHT; TEARDROP CELLS SLIGHT
--- NOTE | 2018-10-14 09:28 | CP.PCM.DIS ---
Provider - Provider Date of Admission: 10/12/18 16:09 Attending physician: Terry Faria MD Consults: Orthopedics Dr. Kamar Gerber Time Spent in preparation of Discharge (in minutes): 40 Hospital Course - Lab Results Lab Results: Micro Results 10/12/18 18:26 Nose MRSA Culture (Admit) - Final MRSA NOT DETECTED Most Recent Lab Values WBC 17.1 K/uL (4.8-10.8) H 10/14/18 05:48 RBC 4.89 Mil/uL (4.40-5.90) 10/14/18 05:48 Hgb 10.6 g/dL (12.0-18.0) L 10/14/18 05:48 Hct 35.4 % (35.0-51.0) 10/14/18 05:48 MCV 72.3 fL (80.0-94.0) L 10/14/18 05:48 MCH 21.8 pg (27.0-31.0) L 10/14/18 05:48 MCHC 30.1 g/dL (33.0-37.0) L 10/14/18 05:48 RDW 13.5 % (11.5-14.5) 10/14/18 05:48 Plt Count 230 K/uL (130-400) 10/14/18 05:48 MPV 8.5 fL (7.2-11.7) 10/14/18 05:48 Neut % (Auto) 91.0 % (50.0-75.0) H 10/14/18 05:48 Lymph % (Auto) 5.7 % (20.0-40.0) L 10/14/18 05:48 [place] % (Auto) 3.1 % (0.0-10.0) 10/14/18 05:48 Eos % (Auto) 0.0 % (0.0-4.0) 10/14/18 05:48 Baso % (Auto) 0.2 % (0.0-2.0) 10/14/18 05:48 Neut # (Auto) 15.6 K/uL (1.8-7.0) H 10/14/18 05:48 Lymph # (Auto) 1.0 K/uL (1.0-4.3) 10/14/18 05:48 [place] # (Auto) 0.5 K/uL (0.0-0.8) 10/14/18 05:48 Eos # (Auto) 0.0 K/uL (0.0-0.7) 10/14/18 05:48 Baso # (Auto) 0.0 K/uL (0.0-0.2) 10/14/18 05:48 Neutrophils % (Manual) 85 % (50-75) H 10/14/18 05:48 Band Neutrophils % 2 % (0-2) 10/14/18 05:48 Lymphocytes % (Manual) 8 % (20-40) L 10/14/18 05:48 Monocytes % (Manual) 5 % (0-10) 10/14/18 05:48 Platelet Estimate Normal (NORMAL) 10/14/18 05:48 Large Platelets Present 10/13/18 07:28 Giant Platelets Present 10/13/18 07:28 Polychromasia Slight 10/14/18 05:48 Hypochromasia (manual) Moderate 10/14/18 05:48 Poikilocytosis (manual Slight 10/14/18 05:48 Anisocytosis (manual) Slight 10/14/18 05:48 Microcytosis (manual) Slight 10/14/18 05:48 Tear Drop Cells Slight 10/14/18 05:48 Ovalocytes Slight 10/14/18 05:48 Puncture Site L brac 10/13/18 05:24 pCO2 37 mm/Hg (35-45) 10/13/18 05:24 pO2 107 mm/Hg (80-100) H 10/13/18 05:24 HCO3 21.3 mmol/L (21-28) 10/13/18 05:24 ABG pH 7.35 (7.35-7.45) 10/13/18 05:24 ABG Total CO2 21.5 mmol/L (22-28) L 10/13/18 05:24 ABG O2 Saturation 99.4 % (95-98) H 10/13/18 05:24 ABG Base Excess -4.7 mmol/L (-2.0-3.0) L 10/13/18 05:24 ABG Hemoglobin 11.6 g/dL (11.7-17.4) L 10/13/18 05:24 ABG Carboxyhemoglobin 2.3 % (0.5-1.5) H 10/13/18 05:24 POC ABG HHb (Measured) 0.6 % (0.0-5.0) 10/13/18 05:24 ABG Methemoglobin 0.7 % (0.0-3.0) 10/13/18 05:24 Chicho Test Na 10/13/18 05:24 A-a O2 Difference 132.0 mm/Hg 10/13/18 05:24 Respiratory Index 1.2 10/13/18 05:24 Hgb O2 Saturation 96.4 % (95.0-98.0) 10/13/18 05:24 Vent Mode Prvc 10/13/18 05:24 Mechanical Rate 16 10/13/18 05:24 FiO2 40.0 % 10/13/18 05:24 Tidal Volume 450 10/13/18 05:24 PEEP 5 10/13/18 05:24 Sodium 139 mmol/L (132-148) 10/14/18 05:48 Potassium 4.2 mmol/L (3.6-5.2) 10/14/18 05:48 Chloride 109 mmol/L (98-107) H 10/14/18 05:48 Carbon Dioxide 24 mmol/L (22-30) 10/14/18 05:48 Anion Gap 10 (10-20) 10/14/18 05:48 BUN 13 mg/dL (9-20) 10/14/18 05:48 Creatinine 0.8 mg/dL (0.8-1.5) 10/14/18 05:48 Est GFR ( Amer) > 60 10/14/18 05:48 Est GFR (Non-Af Amer) > 60 10/14/18 05:48 POC Glucose (mg/dL) 157 mg/dL (65-110) H 10/13/18 23:58 Random Glucose 177 mg/dL (75-110) H D 10/14/18 05:48 Calcium 8.5 mg/dl (8.6-10.4) L 10/14/18 05:48 Phosphorus 2.7 mg/dL (2.5-4.5) 10/14/18 05:48 Magnesium 2.1 mg/dL (1.6-2.3) 10/14/18 05:48 Total Bilirubin 1.1 mg/dL (0.2-1.3) 10/14/18 05:48 AST 35 U/L (17-59) 10/14/18 05:48 ALT 63 U/L (21-72) 10/14/18 05:48 Alkaline Phosphatase 55 U/L (38-126) 10/14/18 05:48 Total Creatine Kinase 118 U/L (55-170) 10/12/18 18:26 CK-MB (Mass) 0.54 ng/mL (0.0-3.38) 10/12/18 18:26 Troponin I 0.0190 ng/mL (0.00-0.120) 10/12/18 18:26 Total Protein 5.6 g/dL (6.3-8.3) L 10/14/18 05:48 Albumin 3.4 g/dL (3.5-5.0) L D 10/14/18 05:48 Globulin 2.2 gm/dL (2.2-3.9) 10/14/18 05:48 Albumin/Globulin Ratio 1.5 (1.0-2.1) 10/14/18 05:48 - Hospital Course Hospital Course: Hospitalist Progress Note Patient was seen and examined at 8:45 AM 10/13/18 ICU Bed 4 38 year male with NO significant PMHx was undergoing Right Achiles Tendon Tear Repair on 10/12/18 when he developed Anaphylaxis (erythematous hives on arms/back with edema of the face/orbits/lips/ears as well as hypotension and respiratory distress) a few minutes after Ancef was administered. Patient was intubated, steroids started, and trasnferred to the ICU for further management and monitoring. He was successfully extubated on 10/13/18. His potassium and calcium was replaced. Please see Assessment and Plans and Discharge Instructions below for further details. Please see full medical record for full details of this patient's hospital course. Currently upon FULL ROS: NO soreness in throat NO palpitations NO chest pain NO abdominal pain NO n/v/d/c NO SOB/Cough/Wheezing NO headaches NO new changes in vision NO new changes in hearing NO paresthesias Exam: General: AAOX3, NAD, Resting comfortably HEENT: NCA, EOMI, PERRLA, NO pharyngeal erythema/exudate, NO cervical/supraclavicular/submandibular lymphadenopathy, NO thyromegaly, Nasal Turbinates are moist without edema/erythema Cardio: NS1 and NS2, NO M/R/G Resp: CTA B/L, NO R/R/W GI: BSx4, Soft, NT, ND, NO HSM, NO guarding/rebound tenderness Ext: Pulses are strong and equal, Capillary Refill is 2 seconds, NO Edema, Normal color Neuro: CN II through XII are grossly intact Skin: NO erythematous hives/rashes noted on arms, hands, abdomen, chest, back, legs. Multiple/Extensive tatoos on arms, chest, abdomen Assessment and Plan: 1). Anaphylaxis Status: Resolved Extubated 10/13/18 morning Solumedrol 40 mg IV Q12H Will discharge on Prednisone Taper 44-47-30-20-10, EpiPen Warned about the future use of Cephalosporins AND PCNs 2). Right Achilles Tendon Tear Status: Acute Currently has bivalve short leg cast in equinus position Doxycline 100 mg PO 2x/day for total of 7 days starting 10/13/18 Dr. Kamar Gerber has discussed cast care with patient and his He is to be NONweight bearing on the right leg and to use scooter: contacted family friend to bring this by from home Dr. Kamar Gerber has already provided with Rx for Lovenox 40 mg SC 1x/day for 14 days to and I confirmed with her that she has already submitted to their pharmacy. Spoke with Nurse Capps and he will show/educate patient and on administration Patient to follow up with Dr. Kamar Gerber at his office this Monday10/16/18 morning 3). Leukocytosis Status: Acute Likely secondary to Solumedrol and stress response Chest X Rays do NOT show any active disease There are NO fevers 4). Hypokalemia Status: Resolved Repleted 10/13/18 with Potassium Phosphate 15 mmol IV x 1 dose AND KCl 20 mEQ IV x 2 doses by the ICU Team 5). Hypocalcemia Status: Acute Repleted 10/13/18 with Calcium Gluconate 2,000 mg x 1 dose by ICU Team 6). Prophylaxis Heparin 5,000 Units SC Q8H Protonix 40 mg PO 1x/day Disposition: Stable for Discharge with further managment as outpatient Discharge Instructions: The following instructions were explained to patient and his and a copy was provided to him and his by me upon discharge: 1). Please follow with Orthopedics Dr. Edson Gerber on Monday10/16/18 as instructed by him. 2). Continue to administer Lovenox injections as ordered by Dr. Kamar Gerber and as instructed/demonstrated to you by Nurse Capps. 3). You must NOT bear weight on the Right Foot. Please use your crutches and scooter. 4). Please have the following prescriptions filled at your pharmacy on your way home from the hospital: Doxycycline 100 mg, 1 tablet by mouth 2x/day (8 AM and 8 PM) for 7 days Lactobacillus, 1 capsule by mouth 2x/day (10 AM and 6 PM) for 37 days (while you are on the Doxycycline and for 30 days after the last dose of Doxycycline) EpiPen 0.3mg/0.3ml Prefilled Autoinjector, inject directly into the lateral aspect of the thigh ONLY if signs of allergic reaction Omeprazole 40 mg, 1 tablet by mouth 1x/day (8 AM) for 5 days starting on 10/15/18 while you are on the Prednisone Prednisone 10 mg, 5 tablet by mouth all at once at 8 AM on 10/15/18 4 tablet by mouth all at once at 8 AM on 10/16/18 3 tablet by mouth all at once at 8 AM on 10/17/18 2 tablet by mouth all at once at 8 AM on 10/18/18 1 tablet by mouth at 8 AM on 10/19/18 5). You have been provided with a 14 day course of the antibiotic Doxycycline. However, for now you should only a complete a 7 day course. Should there be signs of infection at you right lower leg at the time of your exam by Dr. Kamar Gerber on Monday10/16/[address] Kamar Gerber instructs you to do so, then you should complete the 14 day course of Doxycycline. 6). You have an allergy to the medication called Ancef which belongs to a class of antibiotics called Cephalosporin. So this class of drug should NOT be taken by you in the future. This class of drugs also has some cross reactivity to Penicillins therefore your primary care physician or anyone treating you with any antibiotics in the future should be made aware of this as caution will have to be used with Penicillins. 7). This is a brief summary of your stay: 38 year male with NO significant PMHx was undergoing Right Achiles Tendon Tear Repair on 10/12/18 when he developed Anaphylaxis (erythematous hives on arms/back with edema of the face/orbits/lips/ears as well as hypotension and respiratory distress) a few minutes after Ancef was administered. Patient was intubated, steroids started, and trasnferred to the ICU for further management and monitoring. He was successfully extubated on 10/13/18. He remained stable and was discharged on 10/14/18. 8). Please take care and be well. Alfonso Granda D.O. Discharge Exam - Head Exam Head Exam: ATRAUMATIC, NORMAL INSPECTION Discharge Plan - Discharge Medications Prescriptions: Doxycycline Hyclate 100 mg PO Q12H #28 capsule Doxycycline Monohydrate 100 mg PO BID #28 tablet Epinephrine [Epipen] 0.3 mg IJ PRN PRN #3 auto.injct PRN Reason: Allergy Symptoms Lactobacillus Acidophilus [Lactobacillus] 1 cap PO BID #74 cap Omeprazole 40 mg PO DAILY #5 capsule. predniSONE [predniSONE Tab] 10 mg PO DAILY #15 tab - Follow Up Plan Condition: GOOD Disposition: HOME/ ROUTINE Instructions: Anaphylaxis, Epinephrine Autoinjectors, Allergy to Penicillins, Doxycycline, Enoxaparin, Lactobacillus, Omeprazole, Prednisone, How to Give a Blood Thinner Shot , Going Home on Blood Thinners Additional Instructions: The following instructions were explained to patient and his and a copy will need to be provided to him upon discharge: 1). Please follow with Orthopedics Dr. Edson Gerber on Monday10/16/18 as instructed by him. 2). Continue to administer Lovenox injections as ordered by Dr. Kamar Gerber and as instructed/demonstrated to you by Nurse Capps. 3). You must NOT bear weight on the Right Foot. Please use your crutches and scooter. 4). Please have the following prescriptions filled at your pharmacy on your way home from the hospital: Doxycycline 100 mg, 1 tablet by mouth 2x/day (8 AM and 8 PM) for 7 days Lactobacillus, 1 capsule by mouth 2x/day (10 AM and 6 PM) for 37 days (while you are on the Doxycycline and for 30 days after the last dose of Doxycycline) EpiPen 0.3mg/0.3ml Prefilled Autoinjector, inject directly into the lateral aspect of the thigh ONLY if signs of allergic reaction Omeprazole 40 mg, 1 tablet by mouth 1x/day (8 AM) for 5 days starting on 10/15/18 while you are on the Prednisone Prednisone 10 mg, 5 tablet by mouth all at once at 8 AM on 10/15/18 4 tablet by mouth all at once at 8 AM on 10/16/18 3 tablet by mouth all at once at 8 AM on 10/17/18 2 tablet by mouth all at once at 8 AM on 10/18/18 1 tablet by mouth at 8 AM on 10/19/18 5). You have been provided with a 14 day course of the antibiotic Doxycycline. However, for now you should only a complete a 7 day course. Should there be signs of infection at you right lower leg at the time of your exam by Dr. Kamar Gerber on Monday10/16/[address] Kamar Gerber instructs you to do so, then you should complete the 14 day course of Doxycycline. 6). You have an allergy to the medication called Ancef which belongs to a class of antibiotics called Cephalosporin. So this class of drug should NOT be taken by you in the future. This class of drugs also has some cross reactivity to Penicillins therefore your primary care physician or anyone treating you with any antibiotics in the future should be made aware of this as caution will have to be used with Penicillins. 7). This is a brief summary of your stay: 38 year male with NO significant PMHx was undergoing Right Achiles Tendon Tear Repair on 10/12/18 when he developed Anaphylaxis (erythematous hives on arms/back with edema of the face/orbits/lips/ears as well as hypotension and respiratory distress) a few minutes after Ancef was administered. Patient was intubated, steroids started, and trasnferred to the ICU for further management and monitoring. He was successfully extubated on 10/13/18. He remained stable and was discharged on 10/14/18. 8). Please take care and be well. Alfonso Granda Referrals: Marlin Duenas MD [Staff Provider] -
--- NOTE | 2018-10-14 09:31 | CP.PCM.PCO ---
Physician Communication Note - Physician Communication Note Physician Communication Note: Please see above
--- NOTE | 2018-10-14 12:08 | OP ---
PROCEDURE DATE: 10/12/2018 PREOPERATIVE DIAGNOSIS: Right ankle Achilles tear. POSTOPERATIVE DIAGNOSIS: Right ankle Achilles tear. PROCEDURES: Right ankle/foot, 1. Aborted open Achilles primary repair. 2. Closed treatment of Achilles tear. 3. Placement in short leg cast in the equinus position. SURGEON: Marlin Wren MD. MACHINE ROOM OPERATOR: Brandon De Santiago PA-C. JUSTIFICATION FOR MACHINE ROOM OPERATOR: Brandon De Santiago PA-C is a certified physician political science research assistant who was present for the entire procedure and provided skilled surgical assistance with positioning of the patient, positioning of the extremity, management of surgical field, retraction of neurovascular structures, surgical wound and then wound closure, placement of well-padded short leg cast in the equinus position. Brandon De Santiago was present for the entire case. TYPE OF ANESTHESIA: General endotracheal anesthesia. SPECIMEN: None. IMPLANTS: None. TOURNIQUET TIME: 4 minutes at 300 mmHg. ESTIMATED BLOOD LOSS: Zero mL. DRAINS: None. COMPLICATIONS: None. At the beginning of the surgery, immediately after skin incision barely passed subdermal layer, the patient developed a severe hypertensive episode that was minimally responsive to pressors. After discussing the situation with anesthesia staff at hand, decision was made to abort the surgery and the superficial skin incision was rapidly reapproximated with nitza. Sterile dressings were placed and the right ankle/foot was placed in a well-padded short leg cast in equinus position as nonoperative/closed treatment for the Achilles tear. The patient was then brought back into the supine position from the prone position for surgery and it became evident that there was clearly an allergic reaction occurring with significant swelling of his face and redness of his skin throughout. The patient failed the anesthesia team's endotracheal tube leak test and it was confirmed that there was significant tracheal swelling associated with this allergic reaction as well and the patient remained intubated and was transferred to ICU. DISPOSITION: The patient was transferred to ICU and remained intubated. Presumed to be an anaphylaxis/allergic reaction. INDICATIONS FOR SURGERY: The patient is a 38-year-old male with no known significant past medical history or allergies who presented to my office under my care on 09/18/2018 for the first time with right ankle/foot pain and weakness with ankle plantarflexion. He stated that on 09/12/2018, while playing recreational basketball, he felt a pop localized to the right foot/ankle Achilles tendon with immediate weakness and pain. He was unable to return to playing basketball. Clinically, on evaluation in the office, it was felt that he had an Achilles tear. The same day as the injury, he went to [facility] ER and he was diagnosed with a suspected Achilles tear and placed in a boot and instructed to followup with an orthopedic surgeon as an outpatient. MRI of the right ankle was done at [facility] on 09/23/2018, which was read as: 1. Moderate to marked Achilles tendonitis with superimposed near full-thickness tear at its critical zone. 2. Moderate low ankle sprain including grade II sprain of anterior and posterior talofibular ligaments and grade I sprain of deltoid ligament. 3. [id number] changes of peroneal tenosynovitis without tear. 4. No evidence of fracture or malalignment at the mortise. After reviewing the MRI imaging and report with the patient at length, the diagnosis of the Achilles tear was confirmed. We discussed treatment options, which included nonoperative closed treatment of the Achilles tendon tear with serial castings starting in the equinus position and clinically progressing to a neutral position in the cast over a span of 6 to 8 weeks depending on clinical progress of scarring in and healing of the Achilles tendon followed by placement in a boot and physical therapy program to regain his strength. The surgical option for treatment was an open primary Achilles tendon repair. We spent a significant amount of time reviewing the pros and cons of nonoperative versus surgical treatment and the risks, benefits and alternatives to surgery. He took a couple of weeks to do his research and decide on the treatment plan, which was best for him. In the interim, he did not want to start casting and just wanted to continue use of his boot. Finally, when he followed up in the office on 10/09/2018, he committed to undergoing surgical intervention in the form of primary Achilles tendon open repair. Prior to that, we had multiple conversations over the phone and the surgical date of 10/12/2018 had been selected and he was leaning towards surgery. The risks, benefits, and alternatives to the open primary Achilles tendon repair was discussed at length with the patient with the risk including not limited to infection, neurovascular damage, wound breakdown and healing issues, development of blood clots including DVT and PE, development of chronic pain and disability, stiffness, inability to return to preinjury level of activity and sports, wound complications, need for further surgery, anesthesia reactions including . After answering all of his questions, he stated that he understood the risks and wished to proceed with the surgery. He watched surgical animation videos and diagnosis animation videos on multiple office visits and he stated that he had a good understanding of his diagnosis as well as the procedure that was being done. I also reviewed at length with him the postop rehabilitation protocol and he stated that he had a good understanding of the procedure as well as the need for compliance with the postop rehabilitation protocol to maximize the chances of successful outcome after surgery. He was referred to his primary care physician for preoperative medical evaluation and PATs and the procedure was scheduled at [facility] on 10/12/2018. DESCRIPTION OF PROCEDURE: The patient was identified in the preoperative holding area and the right ankle was marked for surgery. Once again, as described above, the risks, benefits and alternatives of the procedure were discussed at length with the patient and informed consent was obtained. After a brief discussion with the anesthesia staff, the patient was taken to the operating room on his stretcher. Initial time-out was done. General anesthesia was administered without any difficulty or complications. The patient was then brought into the prone position with all superficial neurovascular structures and bony prominences well padded. With the help of anesthesia staff and nursing staff, proper positioning and head-neck alignment was established and confirmed with padding in critical areas. Tourniquet was placed high on the right thigh. Right lower extremity was prepped and draped in a standard sterile fashion. A final time-out was done with the surgeon, anesthesia staff, OR staff, all in agreement with the patient, procedure being done and the extremity being operated on. We began with a slightly medially based posterior incision centered on the palpated defect of the Achilles tendon extending approximately 4 cm proximal and distal to the palpated Achilles tendon defect. The right lower extremity was exsanguinated and the tourniquet was inflated to 300 mmHg. Incision was made through the skin and right after the incision was made, I was notified by anesthesia staff that he was not responding to painful stimulus and the painful stimulus of the incision and the pressors, albeit there was some improvement. We gave them a couple of minutes to try to evaluate his hypertensive episode and correct it. Once it was determined that adequate response was not seen to the pressors, the surgery was aborted. The incision was rapidly reapproximated with nitza and a sterile dressing was placed. A well-padded short leg cast was placed in the equinus position to initiate closed treatment of the Achilles tendon tear as nonoperative treatment. The patient was then brought into the supine position and once he was flipped onto the supine position, it became apparent that there was a definite allergic reaction clinically occurring with swelling at his eyelids and face as well as redness along his skin. Anesthesia staff performed an endotracheal leak test that was unsuccessful with no detectable air from the patient's lungs escaping around the endotracheal tube once the pressure positional wall was decompressed. At that point in time, decision was made to keep him intubated as it was confirmed that there must be significant tracheal swelling as well. It was unsafe to extubate him at that point in time. He was transferred to ICU and remained intubated overnight. I had multiple conversations with the patient's and family explaining to them the situation with the help of anesthesia staff as well. The was of good understanding of the sequence of events and was in agreement with our treatment plan. Plan was to meet with the family and the hospitalist and ICU staff bedside with the patient early next morning to determine prognosis and treatment plan and evaluate his response to the steroid dosing and Benadryl dosing to help reverse his allergic reaction. Marlin Wren MD
== END 2018-10-14 10:15 | disposition home or self-care (01) | DRG 563 ==
LOC: C.SDS 08:31 → C.9I 16:09
PROVIDERS: ADMIT Internal Medicine; ATTEND Internal Medicine
PROC: 0BH17EZ Insertion of Endotracheal Airway into Trachea, Via Natural or Artificial Opening (ICD-10-PCS; 2018-10-12)
PROC: 5A1945Z Respiratory Ventilation, 24-96 Consecutive Hours (ICD-10-PCS; 2018-10-12)
PROC: 2W3QX2Z Immobilization of Right Lower Leg using Cast (ICD-10-PCS; principal; 2018-10-12 07:30)
DX: S86.011A Strain of right Achilles tendon, initial encounter (principal); J45.909 Unspecified asthma, uncomplicated; E87.6 Hypokalemia; I95.81 Postprocedural hypotension; M76.61 Achilles tendinitis, right leg; Z53.09 Procedure and treatment not carried out because of other contraindication